=== PATIENT | female | born 1990 | race Asian ===

== ENCOUNTER 2020-10-06 09:10 | Outpatient (REF) | payer OTHER, SELFPAY ==
[2020-10-06 10:36] LABS: Hematocrit 40.9 % (37-47); Hemoglobin 13.5 g/dl (12.0-16.0); Mean Corpuscular Hemoglobin 28.9 pg (27.0-33.0); Mean Corpuscular Volume 87.6 fL (80-98); Mean Platelet Volume 12.2 fL (9.4-12.3); Platelet Count 168 X10*3/uL (160-400); Red Blood Count 4.67 X10*6/uL (4.20-5.50); Red Cell Distribution Width 12.6 % (11.0-16.0); White Blood Count 8.1 X10*3/uL (4.8-10.8)
[2020-10-06 11:09] LABS: Alanine Aminotransferase 11 U/L (0-31); Albumin Level 4.4 g/dL (3.5-5.0); Alkaline Phosphatase 68 U/L (39-117); Anion Gap 11 (12-20); Aspartate Amino Transferase 12 U/L (5-31); Bilirubin Direct 0.2 mg/dL (0.0-0.5); Bilirubin Total 0.7 mg/dL (0.0-1.0); Blood Urea Nitrogen 17 mg/dL (9-16); Calcium 9.1 mg/dL (8.4-10.2); Carbon Dioxide 29 mmol/L (22-29); Chloride 103 mmol/L (96-108); Cholesterol 228 mg/dL; Estimated Glomerular Filt Rate > 60; Glucose Fasting 84 mg/dL (60-99); HDL Cholesterol 36 mg/dL; LDL Cholesterol Calculated 161 mg/dl; Potassium 4.1 mmol/L (3.3-5.1); Sodium 139 mmol/L (135-145); Total Protein 7.3 g/dL (6.5-8.0); Triglycerides 157 mg/dL
== END 2020-10-06 09:11 | disposition home or self-care (01) ==
LOC: HO.WFDLDS 09:10
PROVIDERS: Visit Provider Hospitalist
DX: Z00.00 Encounter for general adult medical examination without abnormal findings (principal); Z13.9 Encounter for screening, unspecified
CPT/HCPCS: 36415; 80048; 80061; 80076; 84443; 85027

== ENCOUNTER 2022-07-02 19:25 | Emergency (ER) | payer OTHER, SELFPAY ==
[2022-07-02 20:48] VITALS: BP 130/63; PULSE 77; RESP 16; TEMP 36.8; O2SAT 100; BMI 28.3
--- OUTSIDE RECORDS SUMMARY | 2022-07-02 21:32 | XMS_ITS | Continuity of Care Document ---
:1990 Author Organization [facility] Address [address] [place] [address]- Care Team Providers Name Role Phone Elisa Obrien MD Primary Care Physician Encounter [facility] [place] Date(s): 11/25/21 - 12/25/[address] [address] Allergies, Adverse Reactions, Alerts No Known Allergies Immunizations Given and Recorded Vaccine Date Status Refusal Reason tetanus/diphtheria/pertussis, acel(Tdap) 12/04/21 Given Medications Alcohol Wipes See Instructions, # 200 each, Refills 5, Tot. Refills 5, Maintenance, Please use as directed for glucose monitoring four times daily, 12/21/21 15:36:00 EDT, Supply, 165, cm, 12/18/21 10:40:00 EDT, Height, 101.4, kg, 11/25/21 10:44:00 EDT, Dry Weight Start Date: 12/21/21 Status: Orderedferrous sulfate 325 mg oral enteric coated tablet 325 mg, 1, tablet, By Mouth, Daily, # 90 tablet, Refills 0, Tot. Refills 0, Maintenance, 12/18/21 11:10:00 EDT, Route to Pharmacy Electronically, [facility] #[id number], Partial fill upon patient request if the prescription is for a schedule II o... Start Date: 12/18/21 Status: OrderedFREESTYLE LITE LANCETS FREESTYLE LITE LANCETS, See Instructions, # 200 each, Refills 5, Tot. Refills 5, Maintenance, GLUCOSE MONITORING 4 TIMES A DAY DURING , 12/21/21 15:36:00 EDT, WWCL PATIENT, PLEASE COMPLETE METER TEACHING WITH PATIENT. LATVIAN SPEAKING, Supply,... Start Date: 12/21/21 Status: OrderedFreestyle Lite Monitor See Instructions, # 1 each, Refills 0, Tot. Refills 0, Maintenance, Glucose monitoring during . WWCL PATIENT. PLEASE COMPLETE TEACHING WITH PATIENT. LATVIAN SPEAKING, 12/21/21 15:36:00 EDT, Supply, 165, cm, 12/18/21 10:40:00 EDT, Height, 101... Start Date: 12/21/21 Status: OrderedFREESTYLE LITE STRIPS FREESTYLE LITE STRIPS, See Instructions, # 200 each, Refills 5, Tot. Refills 5, Maintenance, GLUCOSEMONITORING 4 TIMES PER DAY DURING THE , 12/21/21 15:36:00 EDT, WWCL PATIENT, PLEASE COMPLETE METER TEACHING WITH PATIENT. LATVIAN SPEAKING, Claudio... Start Date: 12/21/21 Status: OrderedPrenatal Multivitamins with Folic Acid 1 mg oral tablet 1 tablet, By Mouth, Daily, # 90 tablet, 3 Refills, Maintenance, 07/21/21 17:00:00 EST, Tablet, [facility] #[id number], Partial fill upon patient request if the prescription is for a schedule II opioid drug., 1 tablet By Mouth Daily Start Date: 07/21/21 Status: Ordered Problem List Condition Effective Dates Status Health Status Informant Migraine(Confirmed)1 Active Obese class II(Confirmed) Active 1Stopped taking medication with . Was previously taking Fioricet and Naproxen. Currently takes Tylenol but does help, was prescribed by a specialist. Encouraged to contact specialist to follow up. Social History Social History Type Response Tobacco Use: Hookah. Other: Smoked e very two weeks, Stopped with . Sex
--- OUTSIDE RECORDS SUMMARY | 2022-07-02 21:32 | XMS_ITS | Continuity of Care Document ---
:1990 Author Organization [facility] Address [address] [place] [address]- Care Team Providers Name Role Phone Not on Staff, PCP Primary Care Physician Unavailable Encounter [facility] Date(s): 04/12/22 - 05/22/[address] [address]- Attending Physician: Not on Staff, Attending MD Referring Physician: Ha Bolton Allergies, Adverse Reactions, Alerts No Known Allergies Immunizations Given and Recorded Vaccine Date Status Refusal Reason tetanus/diphtheria/pertussis, acel(Tdap) 12/04/21 Given Medications ferrous sulfate 325 mg oral enteric coated tablet 325 mg, 1, tablet, By Mouth, Daily, # 90 tablet, Refills 0, Tot. Refills 0, Maintenance, 04/12/22 16:13:00 EDT, Route to Pharmacy Electronically, [facility] #[id number], Partial fill upon patient request if the prescription is for a schedule II o... Start Date: 04/12/22 Status: OrderedSlynd 4 mg oral tablet 1 tablet = 4 mg, By Mouth, Daily, # 84 tablet, 4 Refills, Maintenance, 04/12/22 16:14:00 EDT, Tablet, [facility] #[id number], Partial fill upon patient request if the prescription is for a schedule II opioid drug., 165, cm, 04/12/22 16:04:00 EDT,... Start Date: 04/12/22 Status: Ordered Problem List Condition Effective Dates Status Health Status Informant Breech presentation(Confirmed) Active Intrauterine growth restriction of Active (Confirmed) Migraine(Confirmed)1 Active Obese class II(Confirmed) Active 1Stopped taking medication with . Was previously taking Fioricet and Naproxen. Currently takes Tylenol but does help, was prescribed by a specialist. Encouraged to contact specialist to follow up. Social History Social History Type Response Tobacco Use: Hookah. Other: Smoked e very two weeks, Stopped with . Sex Care Team PersonnelName: Not on Staff, PCP
--- OUTSIDE RECORDS SUMMARY | 2022-07-02 21:32 | XMS_ITS | Continuity of Care Document ---
:1990 Author Organization [facility] Address [address] [place] [address]- Care Team Providers Name Role Phone Not on Staff, PCP Primary Care Physician Unavailable Encounter [facility] [place] Date(s): 12/18/21 - 03/07/[address] [address]- Attending Physician: Not on Staff, Attending MD Allergies, Adverse Reactions, Alerts No Known Allergies Immunizations Given and Recorded Vaccine Date Status Refusal Reason tetanus/diphtheria/pertussis, acel(Tdap) 12/04/21 Given Medications acetaminophen 325 mg oral tablet 650 mg, By Mouth, Every 4 hours, (1-3), may give 325mg per patient preference and re-dose with 325mgwithin 4 hours if needed. Patient should only receive a total of 650mg of Acetaminophen every 4 hours., # 50 tablet, Refills 0, Tot. Refills 0, Main... Start Date: 02/08/22 Status: OrderedCamila 0.35 mg oral tablet 1 tablet = 0.35 mg, By Mouth, Daily, take at the same time each day, # 84 tablet, 3 Refills, Maintenance, 02/08/22 12:14:00 EDT, Tablet, [id number], Partial fill upon patient request if the prescription is for a schedule II opioid drug., 165,... Start Date: 02/08/22 Status: Orderedcodeine-guaifenesin 7.5 mg-225 mg/5 mL oral liquid 5 mL, By Mouth, Every 4 hours, PRN Cough, # 60 mL, 0 Refills, Maintenance, 02/08/22 12:14:00 EDT, Liquid, [id number], Partial fill upon patient request if the prescription is for a schedule II opioid drug., 5 mL By Mouth Every 4 hours,PRN:Coug... Start Date: 02/08/22 Status: Ordereddocusate sodium 100 mg oral capsule 1 capsule = 100 mg, By Mouth, 2 times a day, # 60 capsule, 0 Refills, Maintenance, 02/08/22 12:14:00EDT, Capsule, [facility]acy #[id number], Partial fill upon patient request if the prescription is for a schedule II opioid drug., 165, cm, 02/08/22 9:41:00 E... Start Date: 02/08/22 Status: Orderedferrous sulfate 325 mg oral enteric coated tablet 325 mg, 1, tablet, By Mouth, Daily, # 90 tablet, Refills 0, Tot. Refills 0, Maintenance, 12/18/21 11:10:00 EDT, Route to Pharmacy Electronically, [facility] #[id number], Partial fill upon patient request if the prescription is for a schedule II o... Start Date: 12/18/21 Status: Orderedibuprofen 800 mg oral tablet See Instructions, TAKE 1 TABLET BY MOUTH EVERY 8 HOURS NEEDED, # 60 tablet, Refills 0, Instructions Replace Required Details, Route to Pharmacy Electronically, [id number], 165, cm, 02/08/22 9:41:00 EDT, Height, 104, kg, 02/04/22 9:40:00 EDT, D... Start Date: 03/02/22 Status: OrderedoxyCODONE 5 mg oral tablet 5 mg, 1, tablet, By Mouth, Every 3 hours, PRN, for severe post-operartive pain (7-10), # 7 tablet, Refills 0, Tot. Refills 0, Maintenance, Pain , Severe, 02/08/22 12:14:00 EDT, Route to Pharmacy Electronically, [facility] #[id number], Partial fill upon pa... Start Date: 02/08/22 Status: OrderedPrenatal Multivitamins with Folic Acid 1 mg oral tablet 1 tablet, By Mouth, Daily, # 90 tablet, 3 Refills, Maintenance, 07/21/21 17:00:00 EST, Tablet, [facility] #[id number], Partial fill upon patient request if the prescription is for a schedule II opioid drug., 1 tablet By Mouth Daily Start Date: 07/21/21 Status: OrderedSenna 8.6 mg oral tablet 17.2 mg, 2, tablet, By Mouth, Daily, # 36 tablet, Refills 0, Tot. Refills 0, Maintenance, 02/08/22 12:14:00 EDT, Route to Pharmacy Electronically, [facility]acy #[id number] Tablet, Partial fill upon patient request if the prescription is for a schedule II op... Start Date: 02/08/22 Status: Orderedsimethicone 80 mg oral tablet, chewable 80 mg, Chew, 3 times a day, PRN, # 48 tablet, Refills 0, Tot. Refills 0, Maintenance, Gas, 02/08/22 12:14:00 EDT, [id number], Partial fill upon patient requestif the prescription is for a schedule II opioid d... Start Date: 02/08/22 Status: Ordered Problem List Condition Effective Dates [...]
--- OUTSIDE RECORDS SUMMARY | 2022-07-02 21:32 | XMS_ITS | Continuity of Care Document ---
:1990 Author Organization [facility] Address [address] [place] [address]- Care Team Providers Name Role Phone Elisa Obrien MD Primary Care Physician Encounter [facility] [place] Date(s): 07/04/21 - 07/04/[address] [address] Discharge Disposition: A-D/C Home Attending Physician: Mar Akhtar MD Admitting Physician: Mar Akhtar MD Referring Physician: Mar Akhtar MD Allergies, Adverse Reactions, Alerts Substance Reaction Severity Status NKA Active Problem List Condition Effective Dates Status Health Status Informant Migraine(Confirmed) Active Encounter for healthy person Active accompanying sick person(Confirmed) Procedures Procedure Date Related Diagnosis Body Site Status section Completed Vital Signs Most recent to oldest [Reference Range]: 1 Oxygen Saturation [94-100 %] 100 % (07/04/21 4:07 PM) Pulse Rate [55-90 bpm] 83 bpm (07/04/21 4:07 PM) Blood Pressure [90-138/55-84 mm Hg] 123/77 mm Hg (07/04/21 4:07 PM) Respiratory Rate [16-30 br/min] 18 br/min (07/04/21 4:07 PM) Temperature [96.8-100.4 DegF] 98.2 DegF (07/04/21 4:07 PM) Mode of Delivery (Oxygen) Room air (07/04/21 4:07 PM) Blood pressure sites Arm, left (07/04/21 4:07 PM) Temperature Route Oral (07/04/21 4:07 PM)
--- OUTSIDE RECORDS SUMMARY | 2022-07-02 21:32 | XMS_ITS | Continuity of Care Document ---
:1990 Author Organization [facility] Address [address] [place] [address]- Care Team Providers Name Role Phone Elisa Obrien MD Primary Care Physician [place] [facility] - 08/20/[address] [address] Discharge Disposition: A-D/C Home Attending Physician: Ruby Garcia MD Admitting Physician: Ruby Garcia MD Referring Physician: Ruby Garcia MD Allergies, Adverse Reactions, Alerts Substance Reaction Severity Status NKA Active Medications Colace sodium 100 mg oral capsule 100 mg, 1, capsule, By Mouth, 2 times a day, PRN, with plenty of water, # 20 capsule, Refills 2, Tot. Refills 2, Maintenance, for constipation, 08/19/21 16:33:00 EST, Route to Pharmacy Electronically, [facility] #[id number], Partial fill upon pat... Start Date: 08/19/21 Status: Orderedfolic acid 0.4 mg oral tablet 1 tablet = 0.4 mg, By Mouth, Daily, # 100 tablet, 0 Refills, Maintenance, 07/21/21 16:04:00 EST, Tablet, Partial fill upon patient request if the prescription is for a schedule II opioid drug. Start Date: 07/21/21 Status: OrderedPrenatal Multivitamins with Folic Acid 1 mg oral tablet 1 tablet, By Mouth, Daily, # 90 tablet, 3 Refills, Maintenance, 07/21/21 17:00:00 EST, Tablet, [facility] #[id number], Partial fill upon patient request if the prescription is for a schedule II opioid drug., 1 tablet By Mouth Daily Start Date: 07/21/21 Status: Ordered Problem List Condition Effective Dates Status Health Status Informant Migraine(Confirmed)1 Active Obese class I(Confirmed) Active 1Stopped taking medication with . Was previously taking Fioricet and Naproxen. Currently takes Tylenol but does help, was prescribed by a specialist. Encouraged to contact specialist to follow up. Vital Signs Most recent to oldest [Reference Range]: 1 Weight 92.4 kg (08/20/21 9:47 AM) Oxygen Saturation [94-100 %] 100 % (08/20/21 9:47 AM) Pulse Rate [55-90 bpm] 83 bpm (08/20/21 9:47 AM) Blood Pressure [90-138/55-84 mm Hg] 121/52 mm Hg (08/20/21 9:47 AM) Respiratory Rate [16-30 br/min] 18 br/min (08/20/21 9:47 AM) Temperature [96.8-100.4 DegF] 98.3 DegF (08/20/21 9:47 AM) Mode of Delivery (Oxygen) Room air (08/20/21 9:47 AM) Blood pressure sites Arm, right 1 (08/20/21 9:47 AM) Temperature Route Oral (08/20/21 9:47 AM) Dry Weight 92.4 kg (08/20/21 9:47 AM) 1Result Comment: right upper arm measured 33cm Social History Social History Type Response Tobacco Use: Hookah. Other: Smoked e very two weeks, Stopped with . Sex
--- OUTSIDE RECORDS SUMMARY | 2022-07-02 21:32 | XMS_ITS | Continuity of Care Document ---
:1990 Author Organization [facility] Address [address] [place] [address]- Care Team Providers Name Role Phone Not on Staff, PCP Primary Care Physician Unavailable Encounter [facility] Date(s): 12/04/21 - 03/14/[address] [address]- Attending Physician: Not on Staff, Attending MD [...] capsule, 0 Refills, Maintenance, 02/08/22 12:14:00EDT, Capsule, [facility] #[id number], Partial fill upon patient request if the prescription is for a schedule II opioid drug., 165, cm, 02/08/22 9:41:00 E... Start Date: 02/08/22 Status: Orderedferrous sulfate 325 mg oral enteric coated tablet 325 mg, 1, tablet, By Mouth, Daily, # 90 tablet, Refills 0, Tot. Refills 0, Maintenance, 12/18/21 11:10:00 EDT, Route to Pharmacy Electronically, [facility] #[id number], Partial fill upon patient request if the prescription is for a schedule II o... Start Date: 12/18/21 Status: Orderedibuprofen 800 mg oral tablet See Instructions, TAKE 1 TABLET BY MOUTH EVERY 8 HOURS NEEDED, # 60 tablet, Refills 0, Instructions Replace Required Details, Route to Pharmacy Electronically, [id number], 165, cm, 02/08/22 9:41:00 EDT, Height, 104, kg, 02/04/22 9:40:00 EDT, D... Start Date: 03/02/22 Status: OrderedoxyCODONE 5 mg oral tablet 5 mg, 1, tablet, By Mouth, Every 3 hours, PRN, for severe post-operartive pain (7-10), # 7 tablet, Refills 0, Tot. Refills 0, Maintenance, Pain , Severe, 02/08/22 12:14:00 EDT, Route to Pharmacy Electronically, [facility] #[id number], Partial fill upon pa... Start Date: 02/08/22 Status: OrderedPrenatal Multivitamins with Folic Acid 1 mg oral tablet 1 tablet, By Mouth, Daily, # 90 tablet, 3 Refills, Maintenance, 07/21/21 17:00:00 EST, Tablet, [facility] #[id number], Partial fill upon patient request if the prescription is for a schedule II opioid drug., 1 tablet By Mouth Daily Start Date: 07/21/21 Status: OrderedSenna 8.6 mg oral tablet 17.2 mg, 2, tablet, By Mouth, Daily, # 36 tablet, Refills 0, Tot. Refills 0, Maintenance, 02/08/22 12:14:00 EDT, Route to Pharmacy Electronically, [facility] #[id number] Tablet, Partial fill upon patient request if the prescription is for a schedule II op... Start Date: 02/08/22 Status: Orderedsimethicone 80 mg oral tablet, chewable 80 mg, Chew, 3 times a day, PRN, # 48 tablet, Refills 0, Tot. Refills 0, Maintenance, Gas, 02/08/22 12:14:00 EDT, [id number], Partial fill upon patient requestif the [...]
--- OUTSIDE RECORDS SUMMARY | 2022-07-02 21:32 | XMS_ITS | Continuity of Care Document ---
:1990 Author Organization [facility] Address [address] [place] [address]- Care Team Providers Name Role Phone Not on Staff, PCP Primary Care Physician Unavailable Encounter [facility] [place] Date(s): 01/08/22 - 02/07/22 [facility] [address] [place], [place] [address] Allergies, Adverse Reactions, Alerts No Known Allergies Immunizations Given and Recorded Vaccine Date Status Refusal Reason tetanus/diphtheria/pertussis, acel(Tdap) 12/04/21 Given Medications ferrous sulfate 325 mg oral enteric coated tablet 325 mg, 1, tablet, By Mouth, Daily, # 90 tablet, Refills 0, Tot. Refills 0, Maintenance, 12/18/21 11:10:00 EDT, Route to Pharmacy Electronically, [facility] #[id number], Partial fill upon patient request if the prescription is for a schedule II o... Start Date: 12/18/21 Status: OrderedPrenatal Multivitamins with Folic Acid 1 mg oral tablet 1 tablet, By Mouth, Daily, # 90 tablet, 3 Refills, Maintenance, 07/21/21 17:00:00 EST, Tablet, [facility] #[id number], Partial fill upon patient request if the prescription is for a schedule II opioid drug., 1 tablet By Mouth Daily Start Date: 07/21/21 Status: OrderedTamiflu 75 mg oral capsule 1 capsule = 75 mg, By Mouth, 2 times a day, for 5 days, # 10 capsule, 0 Refills, Acute 02/08/22 14:28:00 EDT, 02/03/22 14:28:00 EDT, Capsule, [id number], Partial fill upon patient request if the prescription is for a schedule II opioid drug.,... Start Date: 02/03/22 Stop Date: 02/08/22 Status: Ordered Problem List Condition [...]
--- OUTSIDE RECORDS SUMMARY | 2022-07-02 21:32 | XMS_ITS | Continuity of Care Document ---
:1990 Author Organization [facility] Address [address] [place] [address]- Care Team Providers Name Role Phone Micah ROGER, Elisa Sullivan Primary Care Physician Encounter [facility] [place] Date(s): 12/21/21 - 01/20/[address] [address]- Allergies, Adverse Reactions, Alerts No Known Allergies Immunizations Given and Recorded Vaccine Date Status Refusal Reason tetanus/diphtheria/pertussis, acel(Tdap) 12/04/21 Given Medications ferrous sulfate 325 mg oral enteric coated tablet 325 mg, 1, tablet, By Mouth, Daily, # 90 tablet, Refills 0, Tot. Refills 0, Maintenance, 12/18/21 11:10:00 EDT, Route to Pharmacy Electronically, [facility] #[id number], Partial fill upon patient request if the prescription is for a schedule II o... Start Date: 12/18/21 Status: OrderedPrenatal Multivitamins with Folic Acid 1 mg oral tablet 1 tablet, By Mouth, Daily, # 90 tablet, 3 Refills, Maintenance, 07/21/21 17:00:00 EST, Tablet, [facility] #[id number], Partial fill upon patient request if the [...]
--- OUTSIDE RECORDS SUMMARY | 2022-07-02 21:32 | XMS_ITS | Continuity of Care Document ---
:1990 Author Organization [facility] Address [address] [place] [address]- Care Team Providers Name Role Phone Elisa Obrien MD Primary Care Physician Encounter [facility] [place] Date(s): 01/26/22 - 01/26/[address] [address] Discharge Disposition: A-D/C Home Attending Physician: Mayra Purvis CNM Admitting Physician: Mayra Purvis CNM Referring Physician: Mayra Purvis CNM Allergies, Adverse Reactions, Alerts No Known Allergies Immunizations Given and Recorded Vaccine Date Status Refusal Reason tetanus/diphtheria/pertussis, acel(Tdap) 12/04/21 Given Medications ferrous sulfate 325 mg oral enteric coated tablet 325 mg, 1, tablet, By Mouth, Daily, # 90 tablet, Refills 0, Tot. Refills 0, Maintenance, 12/18/21 11:10:00 EDT, Route to Pharmacy Electronically, [facility] #[id number], Partial fill upon patient request if the prescription is for a schedule II o... Start Date: 12/18/21 Status: OrderedPrenatal Multivitamins with Folic Acid 1 mg oral tablet 1 tablet, By Mouth, Daily, # 90 tablet, 3 Refills, Maintenance, 07/21/21 17:00:00 EST, Tablet, [facility] #[id number], Partial fill upon patient request if the [...]
--- OUTSIDE RECORDS SUMMARY | 2022-07-02 21:32 | XMS_ITS | Continuity of Care Document ---
:1990 Author Organization [facility] Address [address] [place] [address]- Care Team Providers Name Role Phone Micah ROGER, Elisa Sullivan Primary Care Physician Encounter [facility] [place] Date(s): 12/24/21 - 01/23/[address] [address]- Allergies, Adverse Reactions, Alerts No Known Allergies Immunizations Given and Recorded Vaccine Date Status Refusal Reason tetanus/diphtheria/pertussis, acel(Tdap) 12/04/21 Given Medications ferrous sulfate 325 mg oral enteric coated tablet 325 mg, 1, tablet, By Mouth, Daily, # 90 tablet, Refills 0, Tot. Refills 0, Maintenance, 12/18/21 11:10:00 EDT, Route to Pharmacy Electronically, [facility] #[id number], Partial fill upon patient request if the prescription is for a schedule II o... Start Date: 12/18/21 Status: OrderedPrenatal Multivitamins with Folic Acid 1 mg oral tablet 1 tablet, By Mouth, Daily, # 90 tablet, 3 Refills, Maintenance, 07/21/21 17:00:00 EST, Tablet, [facility] #[id number], Partial fill upon patient request if the [...]
--- OUTSIDE RECORDS SUMMARY | 2022-07-02 21:32 | XMS_ITS | Continuity of Care Document ---
:1990 Author Organization [facility] Address [address] [place] [address]- Care Team Providers Name Role Phone Not on Staff, PCP Primary Care Physician Unavailable Encounter [facility] [place] Date(s): 12/18/21 - 03/27/[address] [address]- Attending Physician: Not on Staff, Attending MD [...] capsule, 0 Refills, Maintenance, 02/08/22 12:14:00EDT, Capsule, [facility] #[id number], Partial fill upon patient request if the prescription is for a schedule II opioid drug., 165, cm, 02/08/22 9:41:00 E... Start Date: 02/08/22 Status: Orderedferrous sulfate 325 mg oral enteric coated tablet 325 mg, 1, tablet, By Mouth, Daily, # 90 tablet, Refills 0, Tot. Refills 0, Maintenance, 12/18/21 11:10:00 EDT, Route to Pharmacy Electronically, [facility] #[id number], Partial fill upon patient request if the prescription is for a schedule II o... Start Date: 12/18/21 Status: Orderedibuprofen 800 mg oral tablet See Instructions, TAKE 1 TABLET BY MOUTH EVERY 8 HOURS NEEDED, # 60 tablet, Refills 0, Instructions Replace Required Details, Route to Pharmacy Electronically, [id number], 165, cm, 02/08/22 9:41:00 EDT, Height, 104, kg, 02/04/22 9:40:00 EDT, D... Start Date: 03/02/22 Status: OrderedoxyCODONE 5 mg oral tablet 5 mg, 1, tablet, By Mouth, Every 3 hours, PRN, for severe post-operartive pain (7-10), # 7 tablet, Refills 0, Tot. Refills 0, Maintenance, Pain , Severe, 02/08/22 12:14:00 EDT, Route to Pharmacy Electronically, [facility] #[id number], Partial fill upon pa... Start Date: 02/08/22 Status: OrderedPrenatal Multivitamins with Folic Acid 1 mg oral tablet 1 tablet, By Mouth, Daily, # 90 tablet, 3 Refills, Maintenance, 07/21/21 17:00:00 EST, Tablet, [facility] #[id number], Partial fill upon patient request if the prescription is for a schedule II opioid drug., 1 tablet By Mouth Daily Start Date: 07/21/21 Status: OrderedSenna 8.6 mg oral tablet 17.2 mg, 2, tablet, By Mouth, Daily, # 36 tablet, Refills 0, Tot. Refills 0, Maintenance, 02/08/22 12:14:00 EDT, Route to Pharmacy Electronically, [facility] #[id number] Tablet, Partial fill upon patient request if the prescription is for a schedule II op... Start Date: 02/08/22 Status: Orderedsimethicone 80 mg oral tablet, chewable 80 mg, Chew, 3 times a day, PRN, # 48 tablet, Refills 0, Tot. Refills 0, Maintenance, Gas, 02/08/22 12:14:00 EDT, Route to Pharmacy Electronically, [facility]/pharmacy #[id number], Partial fill upon patient requestif the [...]
--- OUTSIDE RECORDS SUMMARY | 2022-07-02 21:32 | XMS_ITS | Continuity of Care Document ---
:1990 Author Organization [facility] Address [address] [place] [address]- Care Team Providers Name Role Phone Not on Staff, PCP Primary Care Physician Unavailable [place] [facility] [place] 02/08/22 - 04/14/[address] [address]- Attending Physician: Not on Staff, Attending MD Allergies, Adverse Reactions, Alerts No Known Allergies Immunizations Given and Recorded Vaccine Date Status Refusal Reason tetanus/diphtheria/pertussis, acel(Tdap) 12/04/21 Given Medications ferrous sulfate 325 mg oral enteric coated tablet 325 mg, 1, tablet, By Mouth, Daily, # 90 tablet, Refills 0, Tot. Refills 0, Maintenance, 04/12/22 16:13:00 EDT, Route to Pharmacy Electronically, [facility] #[id number], Partial fill upon patient request if the prescription is for a schedule II o... Start Date: 04/12/22 Status: OrderedSlynd 4 mg oral tablet 1 tablet = 4 mg, By Mouth, Daily, # 84 tablet, 4 Refills, Maintenance, 04/12/22 16:14:00 EDT, Tablet, [facility] #[id number], Partial fill upon patient request if the [...]
--- OUTSIDE RECORDS SUMMARY | 2022-07-02 21:32 | XMS_ITS | Continuity of Care Document ---
:1990 Author Organization [facility] Address [address] [place] [address]- Care Team Providers Name Role Phone Not on Staff, PCP Primary Care Physician Unavailable [place] [facility] [place] 03[place]22 [facility] [address] [place] [id number] Attending Physician: Mayra Purvis CNM Admitting Physician: [...] capsule, 0 Refills, Maintenance, 02/08/22 12:14:00EDT, Capsule, [facility]/pharmacy #[id number], Partial fill upon patient request if the prescription is for a schedule II opioid drug., 165, cm, 02/08/22 9:41:00 E... Start Date: 02/08/22 Status: Orderedferrous sulfate 325 mg oral enteric coated tablet 325 mg, 1, tablet, By Mouth, Daily, # 90 tablet, Refills 0, Tot. Refills 0, Maintenance, 12/18/21 11:10:00 EDT, Route to Pharmacy Electronically, [facility] #[id number], Partial fill upon patient request if the prescription is for a schedule II o... Start Date: 12/18/21 Status: Orderedibuprofen 800 mg oral tablet See Instructions, TAKE 1 TABLET BY MOUTH EVERY 8 HOURS NEEDED, # 60 tablet, Refills 0, Instructions Replace Required Details, Route to Pharmacy Electronically, [id number], 165, cm, 02/08/22 9:41:00 EDT, Height, 104, kg, 02/04/22 9:40:00 EDT, D... Start Date: 03/02/22 Status: OrderedoxyCODONE 5 mg oral tablet 5 mg, 1, tablet, By Mouth, Every 3 hours, PRN, for severe post-operartive pain (7-10), # 7 tablet, Refills 0, Tot. Refills 0, Maintenance, Pain , Severe, 02/08/22 12:14:00 EDT, Route to Pharmacy Electronically, [facility]/pharmacy #[id number], Partial fill upon pa... Start Date: 02/08/22 Status: OrderedPrenatal Multivitamins with Folic Acid 1 mg oral tablet 1 tablet, By Mouth, Daily, # 90 tablet, 3 Refills, Maintenance, 07/21/21 17:00:00 EST, Tablet, [facility] #[id number], Partial fill upon patient request if the prescription is for a schedule II opioid drug., 1 tablet By Mouth Daily Start Date: 07/21/21 Status: OrderedSenna 8.6 mg oral tablet 17.2 mg, 2, tablet, By Mouth, Daily, # 36 tablet, Refills 0, Tot. Refills 0, Maintenance, 02/08/22 12:14:00 EDT, Route to Pharmacy Electronically, [facility]/pharmacy #[id number] Tablet, Partial fill upon patient request if the prescription is for a schedule II op... Start Date: 02/08/22 Status: Orderedsimethicone 80 mg oral tablet, chewable 80 mg, Chew, 3 times a day, PRN, # 48 tablet, Refills 0, Tot. Refills 0, Maintenance, Gas, 02/08/22 12:14:00 EDT, Route to Pharmacy Electronically, [facility]/pharmacy #[id number], Partial fill upon patient requestif the [...]
--- OUTSIDE RECORDS SUMMARY | 2022-07-02 21:32 | XMS_ITS | Continuity of Care Document ---
:1990 Author Organization [facility] Address [address] [place] [address]- Care Team Providers Name Role Phone Not on Staff, PCP Primary Care Physician Unavailable Encounter [facility] [place](s): 02/02/22 - 02/02/22 [facility] [address] [place] [id number] Discharge Disposition: A-D/C Home Attending Physician: [...] 12/18/21 11:10:00 EDT, Route to Pharmacy Electronically, [facility] #[id number], Partial fill upon patient request if the prescription is for a schedule II o... Start Date: 12/18/21 Status: OrderedPrenatal Multivitamins with Folic Acid 1 mg oral tablet 1 tablet, By Mouth, Daily, # 90 tablet, 3 Refills, Maintenance, 07/21/21 17:00:00 EST, Tablet, [facility] #[id number], Partial fill upon patient request if the prescription is for a schedule II opioid drug., 1 tablet By Mouth Daily Start Date: 07/21/21 Status: OrderedTamiflu 75 mg oral capsule 1 capsule = 75 mg, By Mouth, 2 times a day, for 5 days, # 10 capsule, 0 Refills, Acute 02/07/22 14:15:00 EDT, 02/02/22 14:15:00 EDT, Capsule, [facility] #[id number], Partial fill upon patient request if the prescription is for a schedule II opioi... Start Date: 02/02/22 Stop Date: 02/07/22 Status: Ordered Problem List Condition Effective Dates [...]
--- OUTSIDE RECORDS SUMMARY | 2022-07-02 21:32 | XMS_ITS | Continuity of Care Document ---
:1990 Author Organization [facility] Address [address] [place] [address]- Care Team Providers Name Role Phone Elisa Obrien MD Primary Care Physician [place] [facility] [place] 02/15/[address] [address]- Discharge Disposition: A-D/C Walkout Attending Physician: Not on Staff, Attending MD Admitting Physician: Not on Staff, Admitting MD Referring Physician: Not on Staff, Referring MD Allergies, Adverse Reactions, Alerts Substance Reaction Severity Status NKA Active Medications No Known Medications Problem List Condition Effective Dates Status Health Status Informant Encounter for healthy person Active accompanying sick person(Confirmed) Vital Signs Most recent to oldest [Reference Range]: 1 Oxygen Saturation [94-100 %] 100 % (02/15/21 1:13 AM) Pulse Rate [55-90 bpm] 64 bpm (02/15/21 1:13 AM) Blood Pressure [90-138/55-84 mm Hg] 111/65 mm Hg (02/15/21 1:13 AM) Respiratory Rate [16-30 br/min] 16 br/min (02/15/21 1:13 AM) Temperature [96.8-100.4 DegF] 98.1 DegF (02/15/21 1:13 AM) Mode of Delivery (Oxygen) Nasal cannula (02/15/21 1:13 AM) Blood pressure sites Arm, left (02/15/21 1:13 AM) Temperature Route Oral (02/15/21 1:13 AM)
--- OUTSIDE RECORDS SUMMARY | 2022-07-02 21:33 | XMS_ITS | Continuity of Care Document ---
:1990 Author Organization [facility] Address [address] [place] [address]- Care Team Providers Name Role Phone Micah ROGER, Elisa Sullivan Primary Care Physician Encounter [facility] [place] Date(s): 08/20/21 - 09/19/[address] [address]- Allergies, Adverse Reactions, Alerts No Known Allergies Medications Colace sodium 100 mg oral capsule 100 mg, 1, capsule, By Mouth, 2 times a day, PRN, with plenty of water, # 20 capsule, Refills 2, Tot. Refills 2, Maintenance, for constipation, 08/19/21 16:33:00 EST, Route to Pharmacy Electronically, [facility] #[id number], Partial fill upon pat... Start Date: 08/19/21 [...] 3 Refills, Maintenance, 07/21/21 17:00:00 EST, Tablet, [facility] #[id number], Partial fill upon patient request if the [...]
--- OUTSIDE RECORDS SUMMARY | 2022-07-02 21:33 | XMS_ITS | Continuity of Care Document ---
:1990 Author Organization [facility] Address [address] [place] [address]- Care Team Providers Name Role Phone Elisa Obrien MD Primary Care Physician Encounter [id number] Date(s): 01/19/22 - 01/19/[address] [address] Discharge Disposition: A-D/C Home Attending Physician: Mayra [...] 12/18/21 11:10:00 EDT, Route to Pharmacy Electronically, [facility] #[id number], Partial fill upon patient request if the prescription is for a schedule II o... Start Date: 12/18/21 Status: OrderedPrenatal Multivitamins with Folic Acid 1 mg oral tablet 1 tablet, By Mouth, Daily, # 90 tablet, 3 Refills, Maintenance, 07/21/21 17:00:00 EST, Tablet, [facility] #[id number], Partial fill upon patient request if the [...]
--- OUTSIDE RECORDS SUMMARY | 2022-07-02 21:33 | XMS_ITS | Continuity of Care Document ---
:1990 Author Organization [facility] Address [address] [place] [address]- Care Team Providers Name Role Phone Not on Staff, PCP Primary Care Physician Unavailable Encounter [facility] [place] Date(s): 12/18/21 - 03/21/[address] [address]- Attending Physician: Not on Staff, Attending MD [...] capsule, 0 Refills, Maintenance, 02/08/22 12:14:00EDT, Capsule, [facility]/pharmacy #[id number], Partial fill upon patient request if the prescription is for a schedule II opioid drug., 165, cm, 02/08/22 9:41:00 E... Start Date: 02/08/22 Status: Orderedferrous sulfate 325 mg oral enteric coated tablet 325 mg, 1, tablet, By Mouth, Daily, # 90 tablet, Refills 0, Tot. Refills 0, Maintenance, 12/18/21 11:10:00 EDT, Route to Pharmacy Electronically, [facility] #[id number], Partial fill upon patient request if the prescription is for a schedule II o... Start Date: 12/18/21 Status: Orderedibuprofen 800 mg oral tablet See Instructions, TAKE 1 TABLET BY MOUTH EVERY 8 HOURS NEEDED, # 60 tablet, Refills 0, Instructions Replace Required Details, Route to Pharmacy Electronically, [facility] [id number], 165, cm, 02/08/22 9:41:00 EDT, Height, 104, kg, 02/04/22 9:40:00 EDT, D... Start Date: 03/02/22 Status: OrderedoxyCODONE 5 mg oral tablet 5 mg, 1, tablet, By Mouth, Every 3 hours, PRN, for severe post-operartive pain (7-10), # 7 tablet, Refills 0, Tot. Refills 0, Maintenance, Pain , Severe, 02/08/22 12:14:00 EDT, Route to Pharmacy Electronically, [facility]/pharmacy #[id number], Partial fill upon pa... Start Date: 02/08/22 Status: OrderedPrenatal Multivitamins with Folic Acid 1 mg oral tablet 1 tablet, By Mouth, Daily, # 90 tablet, 3 Refills, Maintenance, 07/21/21 17:00:00 EST, Tablet, [facility] #[id number], Partial fill upon patient request if the prescription is for a schedule II opioid drug., 1 tablet By Mouth Daily Start Date: 07/21/21 Status: OrderedSenna 8.6 mg oral tablet 17.2 mg, 2, tablet, By Mouth, Daily, # 36 tablet, Refills 0, Tot. Refills 0, Maintenance, 02/08/22 12:14:00 EDT, Route to Pharmacy Electronically, [facility]/pharmacy #[id number] Tablet, Partial fill upon patient request if the prescription is for a schedule II op... Start Date: 02/08/22 Status: Orderedsimethicone 80 mg oral tablet, chewable 80 mg, Chew, 3 times a day, PRN, # 48 tablet, Refills 0, Tot. Refills 0, Maintenance, Gas, 02/08/22 12:14:00 EDT, Route to Pharmacy Electronically, [facility]/pharmacy #[id number], Partial fill upon patient requestif [...]
--- OUTSIDE RECORDS SUMMARY | 2022-07-02 21:33 | XMS_ITS | Continuity of Care Document ---
:1990 Author Organization [facility] Address [address] [place] [address]- Care Team Providers Name Role Phone Not on Staff, PCP Primary Care Physician Unavailable Encounter [facility] [place] Date(s): 02/04/22 - 02/08/[address] [address] Discharge Disposition: A-D/C Home Attending Physician: Ruby Garcia MD Admitting Physician: Ruby Garcia MD Referring Physician: Ruby Garcia MD Allergies, Adverse Reactions, Alerts No Known [...] Refills 0, Main... Start Date: 02/08/22 Status: OrderedAcetaminophen Tablet 650 mg, Tablet, By Mouth, (1-3), may give 325mg per patient preference and re- dose with 325mg within4 hours if needed. Patient should only receive a total of 650mg of Acetaminophen every 4 hours., 02/08/22 10:00:00 EDT Start Date: 02/08/22 Stop Date: 02/08/22 Status: CompletedCamila 0.35 mg oral tablet 1 tablet = [...] 0 Refills, Maintenance, 02/08/22 12:14:00 EDT, Liquid, [facility]/pharmacy #[id number], Partial fill upon patient request if the prescription is for a schedule II opioid drug., 5 mL By Mouth Every 4 hours,PRN:Coug... Start Date: 02/08/22 Status: Ordereddocusate sodium 100 mg oral capsule 1 capsule = 100 mg, By Mouth, 2 times a day, # 60 capsule, 0 Refills, Maintenance, 02/08/22 12:14:00EDT, Capsule, [facility]/pharmacy #[id number], Partial fill upon patient request if the prescription is for a schedule II opioid drug., 165, cm, 02/08/22 9:41:00 E... Start Date: 02/08/22 Status: Orderedferrous sulfate 325 mg oral enteric coated tablet 325 mg, 1, tablet, By Mouth, Daily, # 90 tablet, Refills 0, Tot. Refills 0, Maintenance, 12/18/21 11:10:00 EDT, Route to Pharmacy Electronically, [facility] #[id number], Partial fill upon patient request if the prescription is for a schedule II o... Start Date: 12/18/21 Status: Orderedibuprofen 800 mg oral tablet 800 mg, 1, tablet, By Mouth, Every 8 hours, (4-6), may give 400mg per patient preference and re-dosewith 400mg within 8 hours if needed. Patient should only receive a total of 800mg of Ibuprofen every8 hours., # 60 tablet, Refills 0, Tot. Refills... Start Date: 02/08/22 Status: OrderedIbuprofen Tablet 800 mg, Tablet, By Mouth, (4-6), may give 400mg per patient preference and re- dose with 400mg within8 hours if needed. Patient should only receive a total of 800mg of Ibuprofen every 8 hours., 02/08/22 10:08:00 EDT Start Date: 02/08/22 Stop Date: 02/08/22 Status: CompletedoxyCODONE 5 mg oral tablet 5 mg, 1, tablet, By Mouth, Every 3 hours, PRN, for severe post-operartive pain (7-10), # 7 tablet, Refills 0, Tot. Refills 0, Maintenance, Pain , Severe, 02/08/22 12:14:00 EDT, Route to Pharmacy Electronically, [facility]/pharmacy #[id number], Partial fill upon pa... Start Date: 02/08/22 Status: OrderedPrenatal Multivitamins with Folic Acid 1 mg oral tablet 1 tablet, By Mouth, Daily, # 90 tablet, 3 Refills, Maintenance, 07/21/21 17:00:00 EST, Tablet, [facility] #[id number], Partial fill upon patient request if the prescription is for a schedule II opioid drug., 1 tablet By Mouth Daily Start Date: 07/21/21 Status: OrderedSenna 8.6 mg oral tablet 17.2 mg, 2, tablet, By Mouth, Daily, # 36 tablet, Refills 0, Tot. Refills 0, Maintenance, 02/08/22 12:14:00 EDT, Route to Pharmacy Electronically, [facility]/pharmacy #[id number] Tablet, Partial fill upon patient request if the prescription is for a schedule II op... Start Date: 02/08/22 Status: Orderedsimethicone 80 mg oral tablet, chewable 80 mg, Chew, 3 times a day, PRN, # 48 tablet, Refills 0, Tot. Refills 0, Maintenance, Gas, 02/08/22 12:14:00 EDT, Route to Pharmacy Electronically, [facility]/pharmacy #[id number], Partial fill upon patient requestif the prescription is for a schedule II opioid d... Start Date: 02/08/22 Status: OrderedTamiflu 75 mg oral capsule 1 capsule = 75 mg, By Mouth, 2 times a day, for 5 days, # 10 capsule, 0 Refills, Acute 02/13/22 6:52:00 EDT, 02/08/22 6:52:00 EDT, Capsule, [facility] #[id number], Partial fill upon patient request if the prescription is for a schedule II opioid... Start Date: 02/08/22 Stop Date: 02/13/22 Status: Ordered Problem List Condition Effective Dates Status Health Status Informant Breech presentation(Confirmed) Active Intrauterine growth restriction of Active (Confirmed) Migraine(Confirmed)1 Active Obese class II(Confirmed) Active 1Stopped taking medication with . Was previously taking Fioricet and Naproxen. Currently takes Tylenol but does help, was prescribed by a specialist. Encouraged to contact specialist to follow up. Procedures Procedure Date Related Diagnosis Body Site Status delivery only; 02/04/22 Comp leted Vital Signs Most recent to oldest [Reference 1 2 3 Range]: Height 165 cm 165 cm 165 cm (02/08/22 9:00 AM) (02/08/22 4:00 AM) (02/07/22 8:00 A M) Weight 104 kg (02/04/22 9:40 AM) Oxygen Saturation [94-100 %] 97 % 97 % 97 % (02/08/22 9:00 AM) (02/08/22 4:00 AM) (02/07/22 8:00 A M) Pulse Rate [55-90 bpm] 67 bpm 70 bpm 68 bpm (02/08/22 9:00 AM) (02/08/22 4:00 AM) (02/07/22 8:00 A M) Body Mass Index [18.5-24.99] 38.2 *>HHI* (02/04/22 9:40 AM) Blood Pressure [90-138/55-84 mm 110/65 mm Hg 125/78 mm Hg 101/58 mm Hg Hg] (02/08/22 9:00 AM) (02/08/22 4:00 AM) (02/07/22 8:00 A M) Respiratory Rate [16-30 br/min] 20 br/min 20 br/min 20 br/min (02/08/22 9:43 AM) (02/08/22 9:43 AM) (02/08/22 9:00 A M) Temperature [96.8-100.4 DegF] 98.4 DegF 98.3 DegF 98 .4 DegF (02/08/22 9:00 AM) (02/08/22 4:00 AM) (02/07/22 8:00 A M) Mode of Delivery (Oxygen) Room air Room air Room a ir (02/07/22 8:00 AM) (02/07/22 5:57 AM) (02/07/22 4:00 A M) Blood pressure sites Arm, left Arm, right Arm, right (02/08/22 9:00 AM) (02/07/22 8:00 AM) (02/07/22 5:57 A M) Temperature Route Oral Oral Oral (02/08/22 9:00 AM) (02/08/22 4:00 AM) (02/07/22 8:00 A M) Dry Weight 104 kg (02/04/22 9:40 AM) Social History Social History Type Response Tobacco Use: Hookah. Other: Smoked e very two weeks, Stopped with . Sex
--- OUTSIDE RECORDS SUMMARY | 2022-07-02 21:33 | XMS_ITS | Continuity of Care Document ---
:1990 Author Organization [facility] Address [address] [place] [address]- Care Team Providers Name Role Phone Not on Staff, PCP Primary Care Physician Unavailable [place] [facility] [place]s): 02/02/22 - 03/04/22 [facility] [address] [place], [place] [address] Attending Physician: Peter Bustamante MD Referring Physician: Peter Bustamante MD Allergies, Adverse Reactions, Alerts No Known [...] capsule, 0 Refills, Maintenance, 02/08/22 12:14:00EDT, Capsule, [facility]/pharmacy #[id number], Partial fill upon patient request if the prescription is for a schedule II opioid drug., 165, cm, 02/08/22 9:41:00 E... Start Date: 02/08/22 Status: Orderedferrous sulfate 325 mg oral enteric coated tablet 325 mg, 1, tablet, By Mouth, Daily, # 90 tablet, Refills 0, Tot. Refills 0, Maintenance, 12/18/21 11:10:00 EDT, Route to Pharmacy Electronically, [facility] #[id number], Partial fill upon patient request if the prescription is for a schedule II o... Start Date: 12/18/21 Status: Orderedibuprofen 800 mg oral tablet See Instructions, TAKE 1 TABLET BY MOUTH EVERY 8 HOURS NEEDED, # 60 tablet, Refills 0, Instructions Replace Required Details, Route to Pharmacy Electronically, [facility] [id number], 165, cm, 02/08/22 9:41:00 EDT, Height, 104, kg, 02/04/22 9:40:00 EDT, D... Start Date: 03/02/22 Status: OrderedoxyCODONE 5 mg oral tablet 5 mg, 1, tablet, By Mouth, Every 3 hours, PRN, for severe post-operartive pain (7-10), # 7 tablet, Refills 0, Tot. Refills 0, Maintenance, Pain , Severe, 02/08/22 12:14:00 EDT, Route to Pharmacy Electronically, [facility]/pharmacy #[id number], Partial fill upon pa... Start Date: 02/08/22 Status: OrderedPrenatal Multivitamins with Folic Acid 1 mg oral tablet 1 tablet, By Mouth, Daily, # 90 tablet, 3 Refills, Maintenance, 07/21/21 17:00:00 EST, Tablet, [facility] #[id number], Partial fill upon patient request if the prescription is for a schedule II opioid drug., 1 tablet By Mouth Daily Start Date: 07/21/21 Status: OrderedSenna 8.6 mg oral tablet 17.2 mg, 2, tablet, By Mouth, Daily, # 36 tablet, Refills 0, Tot. Refills 0, Maintenance, 02/08/22 12:14:00 EDT, Route to Pharmacy Electronically, [facility]/pharmacy #[id number] Tablet, Partial fill upon patient request if the prescription is for a schedule II op... Start Date: 02/08/22 Status: Orderedsimethicone 80 mg oral tablet, chewable 80 mg, Chew, 3 times a day, PRN, # 48 tablet, Refills 0, Tot. Refills 0, Maintenance, Gas, 02/08/22 12:14:00 EDT, Route to Pharmacy Electronically, [facility]/pharmacy #[id number], Partial fill upon patient [...]
--- OUTSIDE RECORDS SUMMARY | 2022-07-02 21:33 | XMS_ITS | Continuity of Care Document ---
:1990 Author Organization [facility] Address [address] [place] [address]- Care Team Providers Name Role Phone Not on Staff, PCP Primary Care Physician Unavailable Encounter [facility] Date(s): 01/08/22 - 02/07/22 [facility] [address] [place], [place] [address] Attending Physician: Phillip English Admitting Physician: Phillip English Referring Physician: Phillip English Allergies, Adverse Reactions, Alerts No Known Allergies Immunizations Given and Recorded Vaccine Date Status Refusal Reason tetanus/diphtheria/pertussis, acel(Tdap) 12/04/21 Given Medications ferrous sulfate 325 mg oral enteric coated tablet 325 mg, 1, tablet, By Mouth, Daily, # 90 tablet, Refills 0, Tot. Refills 0, Maintenance, 12/18/21 11:10:00 EDT, Route to Pharmacy Electronically, [facility] #[id number], Partial fill upon patient request if the prescription is for a schedule II o... Start Date: 12/18/21 Status: OrderedPrenatal Multivitamins with Folic Acid 1 mg oral tablet 1 tablet, By Mouth, Daily, # 90 tablet, 3 Refills, Maintenance, 07/21/21 17:00:00 EST, Tablet, [facility] #[id number], Partial fill upon patient request if the prescription is for a schedule II opioid drug., 1 tablet By Mouth Daily Start Date: 07/21/21 Status: OrderedTamiflu 75 mg oral capsule 1 capsule = 75 mg, By Mouth, 2 times a day, for 5 days, # 10 capsule, 0 Refills, Acute 02/08/22 14:28:00 EDT, 02/03/22 14:28:00 EDT, Capsule, [facility]/pharmacy #[id number], Partial fill upon patient request if the [...]
--- OUTSIDE RECORDS SUMMARY | 2022-07-02 21:33 | XMS_ITS | Continuity of Care Document ---
:1990 Author Organization [facility] Address [address] [place] [address]- Care Team Providers Name Role Phone Not on Staff, PCP Primary Care Physician Unavailable Encounter [facility] [place] Date(s): 01/30/22 - 03/07/[address] [address]- Attending Physician: Yadira Wick MD Admitting Physician: Yadira Wick MD Referring Physician: Mayra Purvis CNM Allergies, Adverse [...] Refills, Maintenance, 02/08/22 12:14:00 EDT, Tablet, [id number], Partial fill upon patient request if the [...] capsule, 0 Refills, Maintenance, 02/08/22 12:14:00EDT, Capsule, [facility]/pharmacy #[id number], Partial fill upon patient request if the prescription is for a schedule II opioid drug., 165, cm, 02/08/22 9:41:00 E... Start Date: 02/08/22 Status: Orderedferrous sulfate 325 mg oral enteric coated tablet 325 mg, 1, tablet, By Mouth, Daily, # 90 tablet, Refills 0, Tot. Refills 0, Maintenance, 12/18/21 11:10:00 EDT, Route to Pharmacy Electronically, [facility] #[id number], Partial fill upon patient request if the prescription is for a schedule II o... Start Date: 12/18/21 Status: Orderedibuprofen 800 mg oral tablet See Instructions, TAKE 1 TABLET BY MOUTH EVERY 8 HOURS NEEDED, # 60 tablet, Refills 0, Instructions Replace Required Details, Route to Pharmacy Electronically, [id number], 165, cm, 02/08/22 9:41:00 EDT, Height, 104, kg, 02/04/22 9:40:00 EDT, D... Start Date: 03/02/22 Status: OrderedoxyCODONE 5 mg oral tablet 5 mg, 1, tablet, By Mouth, Every 3 hours, PRN, for severe post-operartive pain (7-10), # 7 tablet, Refills 0, Tot. Refills 0, Maintenance, Pain , Severe, 02/08/22 12:14:00 EDT, Route to Pharmacy Electronically, [facility]/pharmacy #[id number], Partial fill upon pa... Start Date: 02/08/22 Status: OrderedPrenatal Multivitamins with Folic Acid 1 mg oral tablet 1 tablet, By Mouth, Daily, # 90 tablet, 3 Refills, Maintenance, 07/21/21 17:00:00 EST, Tablet, [facility] #[id number], Partial fill upon patient request if the prescription is for a schedule II opioid drug., 1 tablet By Mouth Daily Start Date: 07/21/21 Status: OrderedSenna 8.6 mg oral tablet 17.2 mg, 2, tablet, By Mouth, Daily, # 36 tablet, Refills 0, Tot. Refills 0, Maintenance, 02/08/22 12:14:00 EDT, Route to Pharmacy Electronically, [facility]/pharmacy #[id number] Tablet, Partial fill upon patient request if the prescription is for a schedule II op... Start Date: 02/08/22 Status: Orderedsimethicone 80 mg oral tablet, chewable 80 mg, Chew, 3 times a day, PRN, # 48 tablet, Refills 0, Tot. Refills 0, Maintenance, Gas, 02/08/22 12:14:00 EDT, Route to Pharmacy Electronically, [facility]/pharmacy #[id number], Partial fill upon patient requestif the [...]
--- OUTSIDE RECORDS SUMMARY | 2022-07-02 21:33 | XMS_ITS | Continuity of Care Document ---
:1990 Author Organization [facility] Address [address] [place] [address]- Care Team Providers Name Role Phone Elisa Obrien MD Primary Care Physician Encounter [facility] [place] Date(s): 01/12/22 - 01/12/[address] [id number] Discharge Disposition: A-D/C Home Attending [...] 12/18/21 11:10:00 EDT, Route to Pharmacy Electronically, [facility] #[id number], Partial fill upon patient request if the prescription is for a schedule II o... Start Date: 12/18/21 Status: OrderedFREESTYLE LITE LANCETS FREESTYLE LITE LANCETS, See Instructions, # 200 each, Refills 5, Tot. Refills 5, Maintenance, GLUCOSE MONITORING 4 TIMES A DAY DURING , 12/21/21 15:36:00 EDT, WWCL PATIENT, PLEASE COMPLETE METER TEACHING WITH PATIENT. MONGOLIAN SPEAKING, Supply,... Start Date: 12/21/21 Status: OrderedFreestyle Lite Monitor See Instructions, # 1 each, Refills 0, Tot. Refills 0, Maintenance, Glucose monitoring during . WWCL PATIENT. PLEASE COMPLETE TEACHING WITH PATIENT. MONGOLIAN SPEAKING, 12/21/21 15:36:00 EDT, Supply, 165, cm, 12/18/21 10:40:00 EDT, Height, 101... Start Date: 12/21/21 Status: OrderedFREESTYLE LITE STRIPS FREESTYLE LITE STRIPS, See Instructions, # 200 each, Refills 5, Tot. Refills 5, Maintenance, GLUCOSEMONITORING 4 TIMES PER DAY DURING THE , 12/21/21 15:36:00 EDT, WWCL PATIENT, PLEASE COMPLETE METER TEACHING WITH PATIENT. MONGOLIAN SPEAKING, Claudio... Start Date: 12/21/21 Status: OrderedPrenatal Multivitamins with Folic Acid 1 mg oral tablet 1 tablet, By Mouth, Daily, # 90 tablet, 3 Refills, Maintenance, 07/21/21 17:00:00 EST, Tablet, [facility] #[id number], Partial fill upon patient request if the prescription is for a schedule II opioid drug., 1 tablet By Mouth Daily Start Date: 07/21/21 Status: Ordered Problem List Condition Effective Dates Status Health Status Informant Intrauterine growth restriction of Active (Confirmed) Migraine(Confirmed)1 [...]
--- OUTSIDE RECORDS SUMMARY | 2022-07-02 21:33 | XMS_ITS | Continuity of Care Document ---
:1990 Author Organization [facility] Address [address] [place] [address]- Care Team Providers Name Role Phone Micah ROGER, Elisa Sullivan Primary Care Physician [place] [facility] [place] Date(s): 08/19/21 - 09/18/[address] [address]- Allergies, Adverse Reactions, Alerts No Known Allergies Medications Colace sodium 100 mg oral capsule 100 mg, 1, capsule, By Mouth, 2 times a day, PRN, with plenty of water, # 20 capsule, Refills 2, Tot. Refills 2, Maintenance, for constipation, 08/19/21 16:33:00 EST, Route to Pharmacy Electronically, [facility] #[id number], Partial fill upon pat... Start Date: 08/19/21 [...] 3 Refills, Maintenance, 07/21/21 17:00:00 EST, Tablet, [facility] #[id number], Partial fill upon patient request if the [...]
--- OUTSIDE RECORDS SUMMARY | 2022-07-02 21:33 | XMS_ITS | Continuity of Care Document ---
:1990 Author Organization [facility] Address [address] [place] [address]- Care Team Providers Name Role Phone Not on Staff, PCP Primary Care Physician Unavailable Encounter [facility] [place] Date(s): 04/21/22 - 05/21/[address] [address]- Attending Physician: Phillip English Admitting Physician: Phillip English Referring Physician: AdmtrPhillip Allergies, Adverse Reactions, Alerts No Known Allergies Immunizations Given and Recorded Vaccine Date Status Refusal Reason tetanus/diphtheria/pertussis, acel(Tdap) 12/04/21 Given Medications ferrous sulfate 325 mg oral enteric coated tablet 325 mg, 1, tablet, By Mouth, Daily, # 90 tablet, Refills 0, Tot. Refills 0, Maintenance, 04/12/22 16:13:00 EDT, Route to Pharmacy Electronically, [facility] #[id number], Partial fill upon patient request if the prescription is for a schedule II o... Start Date: 04/12/22 Status: OrderedSlynd 4 mg oral tablet 1 tablet = 4 mg, By Mouth, Daily, # 84 tablet, 4 Refills, Maintenance, 04/12/22 16:14:00 EDT, Tablet, [facility] #[id number], Partial fill upon patient request if the [...]
--- OUTSIDE RECORDS SUMMARY | 2022-07-02 21:33 | XMS_ITS | Continuity of Care Document ---
:1990 Author Organization [facility] Address [address] [place] [address]- Care Team Providers Name Role Phone Not on Staff, PCP Primary Care Physician Unavailable [place] [facility] [place]08[place] - 02/07/[address] [address]- Allergies, Adverse Reactions, Alerts No Known Allergies Immunizations Given and Recorded Vaccine Date Status Refusal Reason tetanus/diphtheria/pertussis, acel(Tdap) 12/04/21 Given Medications ferrous sulfate 325 mg oral enteric coated tablet 325 mg, 1, tablet, By Mouth, Daily, # 90 tablet, Refills 0, Tot. Refills 0, Maintenance, 12/18/21 11:10:00 EDT, Route to Pharmacy Electronically, [facility] #[id number], Partial fill upon patient request if the prescription is for a schedule II o... Start Date: 12/18/21 Status: OrderedPrenatal Multivitamins with Folic Acid 1 mg oral tablet 1 tablet, By Mouth, Daily, # 90 tablet, 3 Refills, Maintenance, 07/21/21 17:00:00 EST, Tablet, [facility] #[id number], Partial fill upon patient request if the prescription is for a schedule II opioid drug., 1 tablet By Mouth Daily Start Date: 07/21/21 Status: OrderedTamiflu 75 mg oral capsule 1 capsule = 75 mg, By Mouth, 2 times a day, for 5 days, # 10 capsule, 0 Refills, Acute 02/08/22 14:28:00 EDT, 02/03/22 14:28:00 EDT, Capsule, [facility]/pharmacy #[id number], Partial fill upon patient request if the [...]
--- OUTSIDE RECORDS SUMMARY | 2022-07-02 21:33 | XMS_ITS | Continuity of Care Document ---
:1990 Author Organization [facility] Address [address] [place] [address]- Care Team Providers Name Role Phone Micah ROGER, Elisa Sullivan Primary Care Physician [place] [facility] [place] 08/14/21 - 09/13/[address] [address]- Allergies, Adverse Reactions, Alerts Substance Reaction Severity Status NKA Active Medications Colace sodium 100 mg oral capsule 100 mg, 1, capsule, By Mouth, 2 times a day, PRN, with plenty of water, # 20 capsule, Refills 2, Tot. Refills 2, Maintenance, for constipation, 08/19/21 16:33:00 EST, Route to Pharmacy Electronically, [facility] #[id number], Partial fill upon pat... Start Date: 08/19/21 [...] 3 Refills, Maintenance, 07/21/21 17:00:00 EST, Tablet, [facility] #[id number], Partial fill upon patient request if the [...]
--- OUTSIDE RECORDS SUMMARY | 2022-07-02 21:33 | XMS_ITS | Continuity of Care Document ---
:1990 Author Organization [facility] Address [address] [place] [address], [address] [place] [phone]- Care Team Providers Name Role Phone Micah ROGER, Elisa Sullivan Primary Care Physician [id number] Date(s): 07/13/21 - 08/12/21 [facility] [address] [place] [address], [address] [place] [id number] Allergies, Adverse Reactions, Alerts Substance Reaction Severity Status NKA Active Medications folic acid 0.4 mg oral tablet 1 tablet [...] 3 Refills, Maintenance, 07/21/21 17:00:00 EST, Tablet, [facility] #[id number], Partial fill upon patient request if the [...]
--- OUTSIDE RECORDS SUMMARY | 2022-07-02 21:33 | XMS_ITS | Continuity of Care Document ---
:1990 Author Organization [facility] Address [address] [place] [address]- Care Team Providers Name Role Phone Not on Staff, PCP Primary Care Physician Unavailable Encounter [facility] [place] Date(s): 03/02/22 - 04/01/[address] [address]- Allergies, Adverse Reactions, Alerts No Known Allergies [...] capsule, 0 Refills, Maintenance, 02/08/22 12:14:00EDT, Capsule, [facility]/pharmacy #[id number], Partial fill upon patient request if the prescription is for a schedule II opioid drug., 165, cm, 02/08/22 9:41:00 E... Start Date: 02/08/22 Status: Orderedferrous sulfate 325 mg oral enteric coated tablet 325 mg, 1, tablet, By Mouth, Daily, # 90 tablet, Refills 0, Tot. Refills 0, Maintenance, 12/18/21 11:10:00 EDT, Route to Pharmacy Electronically, [facility] #[id number], Partial fill upon patient request if the prescription is for a schedule II o... Start Date: 12/18/21 Status: Orderedibuprofen 800 mg oral tablet See Instructions, TAKE 1 TABLET BY MOUTH EVERY 8 HOURS NEEDED, # 60 tablet, Refills 0, Instructions Replace Required Details, Route to Pharmacy Electronically, [facility] [id number], 165, cm, 02/08/22 9:41:00 EDT, Height, 104, kg, 02/04/22 9:40:00 EDT, D... Start Date: 03/02/22 Status: OrderedoxyCODONE 5 mg oral tablet 5 mg, 1, tablet, By Mouth, Every 3 hours, PRN, for severe post-operartive pain (7-10), # 7 tablet, Refills 0, Tot. Refills 0, Maintenance, Pain , Severe, 02/08/22 12:14:00 EDT, Route to Pharmacy Electronically, [facility]/pharmacy #[id number], Partial fill upon pa... Start Date: 02/08/22 Status: OrderedPrenatal Multivitamins with Folic Acid 1 mg oral tablet 1 tablet, By Mouth, Daily, # 90 tablet, 3 Refills, Maintenance, 07/21/21 17:00:00 EST, Tablet, [facility] #[id number], Partial fill upon patient request if the prescription is for a schedule II opioid drug., 1 tablet By Mouth Daily Start Date: 07/21/21 Status: OrderedSenna 8.6 mg oral tablet 17.2 mg, 2, tablet, By Mouth, Daily, # 36 tablet, Refills 0, Tot. Refills 0, Maintenance, 02/08/22 12:14:00 EDT, Route to Pharmacy Electronically, [facility]/pharmacy #[id number] Tablet, Partial fill upon patient request if the prescription is for a schedule II op... Start Date: 02/08/22 Status: Orderedsimethicone 80 mg oral tablet, chewable 80 mg, Chew, 3 times a day, PRN, # 48 tablet, Refills 0, Tot. Refills 0, Maintenance, Gas, 02/08/22 12:14:00 EDT, Route to Pharmacy Electronically, [facility]/pharmacy #[id number], Partial fill upon patient requestif the [...]
--- NOTE | 2022-07-02 22:02 | ED_ITS ---
HPI - Wound/Laceration General Chief Complaint: Wound/Laceration Stated Complaint: left hand swollen wedding band finger most pain Time Seen by Provider: 07/02/22 22:00 Source: patient Mode of arrival: ambulatory Limitations: no limitations History of Present Illness HPI narrative: 32-year-old female presents with a ring that is constricting the blood flow to her left 4th finger. She has been trying to get the ring off for the past 2 days but has been unable to do so. Her finger is swollen and painful. She does not report any other physical complaints at this time. Onset (ago): day(s) (2) Extremity Location: left: hand (Fourth finger) Place: home Patient tetanus UTD: Yes Context: accidental Associated symptoms: pain Related Data Home Medications Medication Instructions Recorded Confirmed No Known Home Meds 09/25/20 Allergies Allergy/AdvReac Type Severity Reaction Status Date / Time No Known Allergies Allergy Verified 07/02/22 20:50 [No Known Allergies*] Review of Systems Review of Systems: Constitutional: No Fever, No Chills ENT/Mouth: No Ear Pain, No Hoarseness, No sore throat Eyes: No Eye Pain, No Swelling, No Redness, No Foreign Body Cardiovascular: No Chest Pain, No SOB Respiratory: No Cough, No Dyspnea Gastrointestinal: No Nausea, No Vomiting, No Diarrhea, No abdominal Pain Genitourinary: No Dysuria, No Hematuria Musculoskeletal: positive 4th finger swelling and pain, No Myalgias, No Joint Swelling Skin: No Skin lacerations, No rash Neuro: No Weakness, No Numbness, No Paresthesias, No Loss of Consciousness, No Dizziness, No Headache Psych: No Anxiety/Panic, No Depression Heme/Lymph: no easy bruising, no Lymphadenopathy Endocrine: No Polyuria, No Polydipsia Yes all other systems are reviewed and are negative [facility] Past Medical History Attestation statement: The following information was validated with the patient. Source: old records reviewed Surgical History History of section Family History Family History Father No problems noted. Mother No problems noted. Brother In good health Sister In good health Son In good health Social History Social History Advance Directives: No Physical Exam Vital Signs: Vital Signs: Last Vital Signs Temp 98.2 F 07/02/22 20:48 Pulse 74 07/02/22 22:55 Resp 16 07/02/22 22:55 BP 130/63 07/02/22 20:48 Pulse Ox 99 07/02/22 22:55 O2 Del Method 07/02/22 22:55 BMI result Body Mass Index 28.3 Appearance: Alert. Oriented X3. No acute distress. Eyes: Pupils equal, round and reactive to light. ENT: Pharynx normal. Neck: Normal inspection. Neck supple. CVS: Normal heart rate and rhythm. Pulses normal. Respiratory: No respiratory distress. Breath sounds normal. Abdomen: Soft and nontender. Skin: Skin warm and dry. Normal skin color. Normal skin turgor. Extremities: Swelling noted to the 4th finger of the left side. Has full range of motion, brisk capillary refill, no sensory deficit. Neuro: No motor deficit. No sensory deficit. Cranial nerves 2-12 intact. Course Course Course Narrative: 32-year-old female presents with a ring that is constricting the blood flow to the 4th left finger. Finger has been swollen for 2 days, and she was unable to get the ring off. Patient does have brisk capillary refill, equal pulses. Finger was digitally blocked with good effect, ring was removed with raptor sheer. No injury sustained from ring removal. No further care needed at this time. Patient verbalized understanding of and agrees plan of care discharge home. Verbalized understanding of signs and symptoms indicating need for emergent intervention. MDM - Wound/Laceration MDM Narrative Medical decision making narrative: Ring constriction Medical Records Attestation: I reviewed the patient's medical records. Procedures Nerve Block Nerve Block 1: Time out performed: Yes Local Anesthetic: lidocaine 2% Amount of anesthesia used (mL): 2 Side: left (Fourth finger) Nerve Blocks: digital Procedure Successful: Yes Patient Tolerated Procedure: well and no complications Discharge Plan Discharge Clinical Impression: Ring or other jewelry causing external constriction, initial encounter Patient Disposition: Home, Self-Care Additional Instructions: You were evaluated for a ring constriction to the left 4th finger. We s uccessfully cut the ring off. Follow-up with primary care physician as needed. Return to the emergency department for any new, concerning, worsening symptoms. Prescriptions: No Action No Known Home Meds Interventions: ED Discharge Assessment Last Done: 07/02/22 23:36 Discharge Date/Time: 07/02/22 23:37
[2022-07-02 22:55] VITALS: PULSE 74; RESP 16; O2SAT 99
== END 2022-07-02 23:37 | disposition home or self-care (01) ==
PROVIDERS: Emergency Provider Emergency Medicine Emergency Medical Services
DX: S61.215A Laceration without foreign body of left ring finger without damage to nail, initial encounter (principal); W26.9XXA Contact with unspecified sharp object(s), initial encounter; Y93.9 Activity, unspecified; Y92.9 Unspecified place or not applicable; Y99.9 Unspecified external cause status
CPT/HCPCS: 99282; 99283

== ENCOUNTER 2023-01-06 14:37 | Inpatient (IN) | payer OTHER, SELFPAY ==
--- NOTE | ~2023-01-06 | CT_ITS ---
EXAMINATION: CT ABDOMEN AND PELVIS WITHOUT CONTRAST CLINICAL INFORMATION: Flank pain. COMPARISON: None available. TECHNIQUE: Multidetector volumetric imaging was performed from the superior aspect of the liver through the pubic symphysis. Sagittal and coronal reformatted images were obtained on the technologist's workstation. This CT examination was performed using dose optimization techniques as appropriate, variously including the following: *Automated exposure control *Adjustment of mA and/or kV according to patient size (this includes techniques or standardized protocols for targeted exams where dose is matched to indication/reason for exam; i.e. extremities or head) *Use of iterative reconstruction technique DLP: 836 mGy-cm FINDINGS: The evaluation is limited by motion, in addition the lack of intravenous contrast limits evaluation of the solid visceral organs including the liver, spleen, pancreas, and kidneys. LUNG BASES: No focal consolidation or pleural effusion. LIVER, GALLBLADDER, AND BILIARY TREE: The liver is normal in size, shape, and attenuation. No focal hepatic lesion or biliary ductal dilatation is present. The gallbladder is not identified, either under distended or surgically removed, correlate with prior history. No significant inflammatory changes in the gallbladder fossa to suspect acute cholecystitis. PANCREAS: Unremarkable. SPLEEN: Unremarkable. ADRENAL GLANDS: Unremarkable. KIDNEYS AND URETERS: No nephrolithiasis or hydronephrosis. No significant perinephric fat stranding. BLADDER: Unremarkable. GASTROINTESTINAL TRACT: The stomach and small bowel are nondilated. The appendix is enlarged measuring up to 1.7 cm in diameter with a few high density appendicoliths and mild periappendiceal fat stranding. No pericolonic fat stranding or evidence of bowel obstruction. Moderate amount of colonic stool burden. ABDOMINAL WALL: No significant hernia is appreciated. LYMPH NODES: No lymphadenopathy by size criteria. VASCULAR: Abdominal aorta is normal in diameter. PELVIC VISCERA: There is a 5 cm simple fluid attenuating cystic appearing observation in the left ovary (3:71). OSSEOUS STRUCTURES: Unremarkable. CT/CT abdomen pelvis wo IV con IMPRESSION: Dilated appendix with multiple appendicoliths and mild periappendiceal fat stranding most consistent with acute appendicitis. The outer appendiceal diameter reaches 1.7 cm which has been associated with a higher predictive value for the presence of a mucocele; recommend surgical consultation. No nephrolithiasis or hydronephrosis. There is a 5 cm simple fluid attenuating cystic lesion in the left ovary, almost certainly benign, and for which a yearly follow-up ultrasound is recommended in an asymptomatic patient. However, if there are findings concerning for an acute ovarian abnormality such as torsion, correlation with a pelvic ultrasound is recommended.
--- NOTE | 2023-01-06 14:52 | ED_ITS ---
HPI - General Adult General Chief complaint: Abdominal Pain <TATIANA Irene Last Filed: 01/06/23 16:49> Stated complaint: sore throat glands abd pain <TATIANA Irene Last Filed: 01/06/23 16:49> Time Seen by Provider: 01/06/23 16:55 <TATIANA Irene Last Filed: 01/06/23 16:49> Source: patient <DO Dimas Machuca Last Filed: 01/06/23 17:30> Mode of arrival: ambulatory <DO Dimas Machuca Last Filed: 01/06/23 17:30> Limitations: no limitations and language barrier <DO Dimas Machuca Last Filed: 01/06/23 17:30> History of Present Illness HPI narrative: 32-year-old female airbag speaking to speak some Malaysian appears understand states she woke this morning with right lower quadrant abdominal pain. Patient was seen in triage and was sent for a CT scan which is concerning for appendicitis with an appendicolith. <DO Dimas Machuca Last Filed: 01/06/23 17:30> MD complaint: Abdominal pain <DO Dimas Machuca Last Filed: 01/06/23 17:30> Onset (ago): hour(s) <DO Dimas Machuca Last Filed: 01/06/23 17:30> Related Data Home medications: Home Medications Medication Instructions Recorded Confirmed No Known Home Meds 09/25/20 01/06/23 <TATIANA Irene Last Filed: 01/06/23 16:49> Allergies/adverse reactions: Allergies Allergy/AdvReac Type Severity Reaction Status Date / Time No Known Allergies Allergy Verified 07/02/22 20:50 [No Known Allergies*] <TATIANA Irene Last Filed: 01/06/23 16:49> Review of Systems Review of Systems: Review of systems: General: Patient denies any fever chills recent illness or falls Musculoskeletal: Denies back pain or body aches or other injuries HEENT: denies headache, runny nose, ear pain Respiratory: denies shortness of breath, cough Cardiovascular: no chest pain or palpitations : denies dysuria, frequency Abdomen: nausea vomiting abdominal pain Extremities: no swelling, no pain Skin: no diaphoresis <DO Dimas Machuca Last Filed: 01/06/23 17:30> Yes all other systems are reviewed and are negative <DO Dimas Machuca Last Filed: 01/06/23 17:30> PMFSH Past Medical History Surgical History: Surgical History History of section <TATIANA Irene - Last Filed: 01/06/23 16:49> Family History Family History: Family History Father No problems noted. Mother No problems noted. Brother In good health Sister In good health Son In good health <TATIANA Irene Last Filed: 01/06/23 16:49> Social History Social History: Social History Advance Directives: No Advance Directives Information Provided: Yes <TATIANA Irene Last Filed: 01/06/23 16:49> Physical Exam ED Vital Signs: Vital Signs - 24 hr 01/06/23 14:54 Temperature 97 F Pulse Rate 94 Respiratory Rate 18 Blood Pressure 126/88 Pulse Oximetry 96 Oxygen Delivery Method Room Air BMI result Body Mass Index 32.8 <TATIANA Irene Last Filed: 01/06/23 16:49> Vital Signs - 24 hr 01/06/23 14:54 Temperature 97 F Pulse Rate 94 Respiratory Rate 18 Blood Pressure 126/88 Pulse Oximetry 96 Oxygen Delivery Method Room Air BMI result Body Mass Index 32.8 <Ralph Clark DO - Last Filed: 01/06/23 17:30> General: Well-appearing well-nourished in no signs of distress HEENT: Normocephalic atraumatic Neck: No signs of JVD, no masses no tenderness or lymphadenopathy Cardiovascular: Regular rate and rhythm Respiratory: Clear to auscultation bilaterally Abdomen: RLQ and midline tenderness with guarding no masses Extremities: Normal pedal pulses no signs of edema Skin: Dry warm no rashes Back: No tenderness full ROM <DO Dimas Machuca Last Filed: 01/06/23 17:30> Course Course Course Narrative: This is an RME: Additional HPI, ROS, PE not included below will be deferred to primary provider. 32 year old female presents with a sore throat and lymphadenopathy and flank pain that radiates to the lower abdomen since this morning, worsening. Denies sick contacts. Patient endorses dysuria. Reports she has a history of cysts on her ovaries that have caused her pain before. Denies . Plan: Labs, viral testing, imaging <TATIAAN Irene - Last Filed: 01/06/23 16:49> Medications Administered Generic Name Dose Route Start Last Admin Trade Name Freq PRN Reason Stop Dose Admin Sodium Chloride 1,000 mls @ 999 mls/hr 01/06/23 17:15 01/06/23 17:19 Ns IV 01/06/23 18:15 999 mls/hr .[id number] CARLOS Administration Discontinued Medications Generic Name Dose Route Start Last Admin Trade Name Freq PRN Reason Stop Dose Admin Morphine Sulfate 4 mg 01/06/23 17:02 01/06/23 17:19 Morphine Sulfate 4 Mg/Ml Cartridge IVPUSH 01/06/23 17:03 4 mg ONCE ONE Administration Protocol Ondansetron HCl 4 mg 01/06/23 17:02 01/06/23 17:19 Ondansetron Hcl 4 Mg/2 Ml Vial IVPUSH 01/06/23 17:03 4 mg ONCE ONE Administration <TATIANA Irene - Last Filed: 01/06/23 16:49> Medications Administered Generic Name Dose Route Start Last Admin Trade Name Freq PRN Reason Stop Dose Admin Sodium Chloride 1,000 mls @ 999 mls/hr 01/06/23 17:15 01/06/23 17:19 Ns IV 01/06/23 18:15 999 mls/hr .[id number] CAROLS Administration Discontinued Medications Generic Name Dose Route Start Last Admin Trade Name Freq PRN Reason Stop Dose Admin Morphine Sulfate 4 mg 01/06/23 17:02 01/06/23 17:19 Morphine Sulfate 4 Mg/Ml Cartridge IVPUSH 01/06/23 17:03 4 mg ONCE ONE Administration Protocol Ondansetron HCl 4 mg 01/06/23 17:02 01/06/23 17:19 Ondansetron Hcl 4 Mg/2 Ml Vial IVPUSH 01/06/23 17:03 4 mg ONCE ONE Administration <Ralph Clark DO - Last Filed: 01/06/23 17:30> Medical Decision Making Medical Decision Making [facility] Narrative: Patient CT scan which I reviewed looks like patient has appendicitis we did consult Dr. Greenwood from surgery immediately. <Ralph Clark DO - Last Filed: 01/06/23 17:30> Differential Diagnosis Differential Diagnoses: The differential diagnosis associated with the presentation includes <Ralph Clark DO - Last Filed: 01/06/23 17:30> Appendicitis small-bowel obstruction diverticulitis acute surgical abdomen less likely coli cystitis the patient has pain is midline to right lower quadrant <Ralph Clark DO - Last Filed: 01/06/23 17:30> Admission/Observation Consideration of admission/observation: Escalation of care including admission/observation considered <Ralph Clark DO - Last Filed: 01/06/23 17:30> Consult Healthcare Provider Management of the patient was discussed with: Edi Analyst <Ralph Clark DO - Last Filed: 01/06/23 17:30> Dr. Holloway for appendicitis <Ralph Clark DO - Last Filed: 01/06/23 17:30> Lab Data [facility] Lab Attestation statement: I reviewed the patient's lab results. <Ralph Clark DO - Last Filed: 01/06/23 17:30> Result Diagrams: 01/06/23 15:16 01/06/23 15:16 <TATIANA Irene - Last Filed: 01/06/23 16:49> Labs: Lab Results 01/06/23 01/06/23 01/06/23 Range/Units 15:16 15:16 15:16 WBC 7.7 (4.8-10.8) X10*3/uL RBC 4.72 (4.20-5.50) X10*6/uL Hgb 13.6 (12.0-16.0) g/dl Hct 39.5 (37.0-47.0) % MCV 83.7 (80.0-98.0) fL MCH 28.8 (27.0-33.0) pg MCHC 34.4 (31.0-35.0) g/dl RDW 13.1 (11.0-16.0) % Plt Count 197 (160-400) X10*3/uL MPV 11.3 (9.4-12.3) fL Immature Gran % (Auto) 0.3 (0.0-0.4) % Neut % (Auto) 63.6 (45-73) % Lymph % (Auto) 28.5 (20-40) % [place] % (Auto) 5.2 (2-11) % Eos % (Auto) 2.0 (0-4) % Baso % (Auto) 0.4 (0-2) % Lymph # (Auto) 2.2 (1.2-4.9) X10*3/uL [place] # (Auto) 0.4 (0.1-1.2) X10*3/uL Eos # (Auto) 0.2 (0.0-0.4) X10*3/uL Baso # (Auto) 0.0 (0.0-0.2) X10*3/uL Abs Immat Gran (auto) 0.02 (0.00-0.03) X10*3/uL Absolute Neuts (auto) 4.9 (2.0-8.3) x10*3/uL Absolute Nucleated RBC 0.000 (0.0-0.012) X10*3/uL Nucleated RBC % (auto) 0.0 (0.0-0.2) /100WBC Sodium 138 (135-145) mmol/L Potassium 4.2 (3.3-5.1) mmol/L Chloride 106 (96-108) mmol/L Carbon Dioxide 23 (22-29) mmol/L Anion Gap 13 (12-20) BUN 7 L (9-16) mg/dL Creatinine 0.70 (0.5-1.4) mg/dL Estim Creat Clear Calc 153.3 Estimated GFR > 60 Random Glucose 97 (60-115) mg/dL Calcium 9.1 (8.4-10.2) mg/dL Magnesium 2.3 (1.6-2.6) mg/dL Total Bilirubin 0.5 (0.0-1.0) mg/dL AST 11 (5-31) U/L ALT 14 (0-31) U/L Alkaline Phosphatase 84 (39-117) U/L Total Protein 7.3 (6.5-8.0) g/dL Albumin 4.3 (3.5-5.0) g/dL Lipase 25 (8-78) U/L Beta HCG, Quant < 2 mIU/mL Urine Color Urine Appearance Urine pH (5.0-9.0) Ur Specific [place] (1.005-1.025) Urine Protein (Neg-Trace) mg/dL Urine Glucose (UA) (Negative) mg/dL Urine Ketones (Negative) mg/dL Urine Blood (Negative) Urine Nitrite (Negative) Ur Leukocyte Esterase (Negative) Urine RBC (0-2) /HPF Urine WBC (0-5) /HPF Ur Squamous Epith Cells (0-2) /HPF Urine Bacteria (None Seen) Hyaline Casts (0-2) /LPF COVID-19 (MARLENA) (Negative) COVID-19 Clin Com Influenza Type A (RICCI) Negative (Negative) Influenza Type B (RICCI) Negative (Negative) Influenza A & B Note See Note 01/06/23 01/06/23 Range/Units 15:16 15:16 WBC (4.8-10.8) X10*3/uL RBC (4.20-5.50) X10*6/uL Hgb (12.0-16.0) g/dl Hct (37.0-47.0) % MCV (80.0-98.0) fL MCH (27.0-33.0) pg MCHC (31.0-35.0) g/dl RDW (11.0-16.0) % Plt Count (160-400) X10*3/uL MPV (9.4-12.3) fL Immature Gran % (Auto) (0.0-0.4) % Neut % (Auto) (45-73) % Lymph % (Auto) (20-40) % [place] % (Auto) (2-11) % Eos % (Auto) (0-4) % Baso % (Auto) (0-2) % Lymph # (Auto) (1.2-4.9) X10*3/uL [place] # (Auto) (0.1-1.2) X10*3/uL Eos # (Auto) (0.0-0.4) X10*3/uL Baso # (Auto) (0.0-0.2) X10*3/uL Abs Immat Gran (auto) (0.00-0.03) X10*3/uL Absolute Neuts (auto) (2.0-8.3) x10*3/uL Absolute Nucleated RBC (0.0-0.012) X10*3/uL Nucleated RBC % (auto) (0.0-0.2) /100WBC Sodium (135-145) mmol/L Potassium (3.3-5.1) mmol/L Chloride (96-108) mmol/L Carbon Dioxide (22-29) mmol/L Anion Gap (12-20) BUN (9-16) mg/dL Creatinine (0.5-1.4) mg/dL Estim Creat Clear Calc Estimated GFR Random Glucose (60-115) mg/dL Calcium (8.4-10.2) mg/dL Magnesium (1.6-2.6) mg/dL Total Bilirubin (0.0-1.0) mg/dL AST (5-31) U/L ALT (0-31) U/L Alkaline Phosphatase (39-117) U/L Total Protein (6.5-8.0) g/dL Albumin (3.5-5.0) g/dL Lipase (8-78) U/L Beta HCG, Quant mIU/mL Urine Color Yellow Urine Appearance Clear Urine pH 6.5 (5.0-9.0) Ur Specific [place] 1.010 (1.005-1.025) Urine Protein Negative (Neg-Trace) mg/dL Urine Glucose (UA) Negative (Negative) mg/dL Urine Ketones Negative (Negative) mg/dL Urine Blood Negative (Negative) Urine Nitrite Negative (Negative) Ur Leukocyte Esterase Trace H (Negative) Urine RBC 0-2 (0-2) /HPF Urine WBC 0-5 (0-5) /HPF Ur Squamous Epith Cells 11-20 (0-2) /HPF Urine Bacteria None Seen (None Seen) Hyaline Casts 0-2 (0-2) /LPF COVID-19 (MARLENA) Negative (Negative) COVID-19 Clin Com See Note Influenza Type A (RICCI) (Negative) Influenza Type B (RICCI) (Negative) Influenza A & B Note <TATIANA Irene - Last Filed: 01/06/23 16:49> Lab Results 01/06/23 01/06/23 01/06/23 Range/Units 15:16 15:16 15:16 WBC 7.7 (4.8-10.8) X10*3/uL RBC 4.72 (4.20-5.50) X10*6/uL Hgb 13.6 (12.0-16.0) g/dl Hct 39.5 (37.0-47.0) % MCV 83.7 (80.0-98.0) fL MCH 28.8 (27.0-33.0) pg MCHC 34.4 (31.0-35.0) g/dl RDW 13.1 (11.0-16.0) % Plt Count 197 (160-400) X10*3/uL MPV 11.3 (9.4-12.3) fL Immature Gran % (Auto) 0.3 (0.0-0.4) % Neut % (Auto) 63.6 (45-73) % Lymph % (Auto) 28.5 (20-40) % [place] % (Auto) 5.2 (2-11) % Eos % (Auto) 2.0 (0-4) % Baso % (Auto) 0.4 (0-2) % Lymph # (Auto) 2.2 (1.2-4.9) X10*3/uL [place] # (Auto) 0.4 (0.1-1.2) X10*3/uL Eos # (Auto) 0.2 (0.0-0.4) X10*3/uL Baso # (Auto) 0.0 (0.0-0.2) X10*3/uL Abs Immat Gran (auto) 0.02 (0.00-0.03) X10*3/uL Absolute Neuts (auto) 4.9 (2.0-8.3) x10*3/uL Absolute Nucleated RBC 0.000 (0.0-0.012) X10*3/uL Nucleated RBC % (auto) 0.0 (0.0-0.2) /100WBC Sodium 138 (135-145) mmol/L Potassium 4.2 (3.3-5.1) mmol/L Chloride 106 (96-108) mmol/L Carbon Dioxide 23 (22-29) mmol/L Anion Gap 13 (12-20) BUN 7 L (9-16) mg/dL Creatinine 0.70 (0.5-1.4) mg/dL Estim Creat Clear Calc 153.3 Estimated GFR > 60 Random Glucose 97 (60-115) mg/dL Calcium 9.1 (8.4-10.2) mg/dL Magnesium 2.3 (1.6-2.6) mg/dL Total Bilirubin 0.5 (0.0-1.0) mg/dL AST 11 (5-31) U/L ALT 14 (0-31) U/L Alkaline Phosphatase 84 (39-117) U/L Total Protein 7.3 (6.5-8.0) g/dL Albumin 4.3 (3.5-5.0) g/dL Lipase 25 (8-78) U/L Beta HCG, Quant < 2 mIU/mL Urine Color Urine Appearance Urine pH (5.0-9.0) Ur Specific [place] (1.005-1.025) Urine Protein (Neg-Trace) mg/dL Urine Glucose (UA) (Negative) mg/dL Urine Ketones (Negative) mg/dL Urine Blood (Negative) Urine Nitrite (Negative) Ur Leukocyte Esterase (Negative) Urine RBC (0-2) /HPF Urine WBC (0-5) /HPF Ur Squamous Epith Cells (0-2) /HPF Urine Bacteria (None Seen) Hyaline Casts (0-2) /LPF COVID-19 (MARLENA) (Negative) COVID-19 Clin Com Influenza Type A (RICCI) Negative (Negative) Influenza Type B (RICCI) Negative (Negative) Influenza A & B Note See Note 01/06/23 01/06/23 Range/Units 15:16 15:16 WBC (4.8-10.8) X10*3/uL RBC (4.20-5.50) X10*6/uL Hgb (12.0-16.0) g/dl Hct (37.0-47.0) % MCV (80.0-98.0) fL MCH (27.0-33.0) pg MCHC (31.0-35.0) g/dl RDW (11.0-16.0) % Plt Count (160-400) X10*3/uL MPV (9.4-12.3) fL Immature Gran % (Auto) (0.0-0.4) % Neut % (Auto) (45-73) % Lymph % (Auto) (20-40) % [place] % (Auto) (2-11) % Eos % (Auto) (0-4) % Baso % (Auto) (0-2) % Lymph # (Auto) (1.2-4.9) X10*3/uL [place] # (Auto) (0.1-1.2) X10*3/uL Eos # (Auto) (0.0-0.4) X10*3/uL Baso # (Auto) (0.0-0.2) X10*3/uL Abs Immat Gran (auto) (0.00-0.03) X10*3/uL Absolute Neuts (auto) (2.0-8.3) x10*3/uL Absolute Nucleated RBC (0.0-0.012) X10*3/uL Nucleated RBC % (auto) (0.0-0.2) /100WBC Sodium (135-145) mmol/L Potassium (3.3-5.1) mmol/L Chloride (96-108) mmol/L Carbon Dioxide (22-29) mmol/L Anion Gap (12-20) BUN (9-16) mg/dL Creatinine (0.5-1.4) mg/dL Estim Creat Clear Calc Estimated GFR Random Glucose (60-115) mg/dL Calcium (8.4-10.2) mg/dL Magnesium (1.6-2.6) mg/dL Total Bilirubin (0.0-1.0) mg/dL AST (5-31) U/L ALT (0-31) U/L Alkaline Phosphatase (39-117) U/L Total Protein (6.5-8.0) g/dL Albumin (3.5-5.0) g/dL Lipase (8-78) U/L Beta HCG, Quant mIU/mL Urine Color Yellow Urine Appearance Clear Urine pH 6.5 (5.0-9.0) Ur Specific [place] 1.010 (1.005-1.025) Urine Protein Negative (Neg-Trace) mg/dL Urine Glucose (UA) Negative (Negative) mg/dL Urine Ketones Negative (Negative) mg/dL Urine Blood Negative (Negative) Urine Nitrite Negative (Negative) Ur Leukocyte Esterase Trace H (Negative) Urine RBC 0-2 (0-2) /HPF Urine WBC 0-5 (0-5) /HPF Ur Squamous Epith Cells 11-20 (0-2) /HPF Urine Bacteria None Seen (None Seen) Hyaline Casts 0-2 (0-2) /LPF COVID-19 (MARLENA) Negative (Negative) COVID-19 Clin Com See Note Influenza Type A (RICCI) (Negative) Influenza Type B (RICCI) (Negative) Influenza A & B Note <Ralph Clark DO - Last Filed: 01/06/23 17:30> Independent Interpretation I performed an independent interpretation of an: CT Scan <Ralph Clark DO - Last Filed: 01/06/23 17:30> Interpretation: Concerning for appendicitis <Ralph Clark DO - Last Filed: 01/06/23 17:30> Radiology Impression Discussion of test interpretation with radiology: I discussed test interpretation with the radiologist and I have reviewed the radiologist's reading. <Ralph Clark DO - Last Filed: 01/06/23 17:30> Prescription Management I considered prescription management with: Pain Medication and Antibiotic <Ralph Clark DO - Last Filed: 01/06/23 17:30> Started on morphine Zosyn fluids and Zofran immediately upon arrival. <Ralph Clark DO - Last Filed: 01/06/23 17:30> Discharge Plan Discharge Clinical Impression: Acute appendicitis <TATIANA Irene Last Filed: 01/06/23 16:49> Patient Disposition: Admitted As Inpatient <TATIANA Irene - Last Filed: 01/06/23 16:49>
[2023-01-06 14:54] VITALS: BP 126/88; PULSE 94; RESP 18; TEMP 36.1; O2SAT 96; BMI 32.8
[2023-01-06 15:24] LABS: MANUAL DIFF FLAG NO
[2023-01-06 15:26] LABS: Basophils Percent Auto 0.4 % (0-2); Eosinophils Absolute Auto 0.2 X10*3/uL (0.0-0.4); Hematocrit 39.5 % (37.0-47.0); Hemoglobin 13.6 g/dl (12.0-16.0); Imm Gran Abs Auto 0.02 X10*3/uL (0.00-0.03); Imm Gran Pct Auto 0.3 % (0.0-0.4); Lymphocytes Absolute Auto 2.2 X10*3/uL (1.2-4.9); Lymphocytes Percent Auto 28.5 % (20-40); Mean Corpuscular HGB Conc 34.4 g/dl (31.0-35.0); Mean Corpuscular Hemoglobin 28.8 pg (27.0-33.0); Mean Corpuscular Volume 83.7 fL (80.0-98.0); Mean Platelet Volume 11.3 fL (9.4-12.3); Monocytes Absolute Auto 0.4 X10*3/uL (0.1-1.2); Monocytes Percent Auto 5.2 % (2-11); Neutrophils Absolute Auto 4.9 x10*3/uL (2.0-8.3); Neutrophils Percent Auto 63.6 % (45-73); Platelet Count 197 X10*3/uL (160-400); Red Blood Count 4.72 X10*6/uL (4.20-5.50); Red Cell Distribution Width 13.1 % (11.0-16.0); White Blood Count 7.7 X10*3/uL (4.8-10.8)
[2023-01-06 15:27] LABS: Appearance Urine Clear; Color Urine Yellow; Glucose Urine UA Negative (Negative); Leukocyte Esterase Urine Trace (Negative); Nitrite Urine Negative (Negative); PH 6.5 (5.0-9.0); UMIC TRIGGER UACC YES; Urine Blood Negative (Negative); Urine Ketones Negative (Negative); Urine Protein Negative (Neg-Trace)
[2023-01-06 15:29] LABS: Bacteria Urine None Seen (None Seen); Hyaline Casts Urine 0-2 /LPF (0-2); RBC Urine 0-2 /HPF (0-2); WBC Urine 0-5 /HPF (0-5)
[2023-01-06 15:40] LABS: COVID-19 Test Negative (Negative); IDNOW Serial# 08D9AD1C; IDNOW Serial# BCCEAD1C; Influenza A Negative (Negative); Influenza B2 Negative (Negative)
[2023-01-06 15:53] LABS: Alanine Aminotransferase 14 U/L (0-31); Albumin Level 4.3 g/dL (3.5-5.0); Alkaline Phosphatase 84 U/L (39-117); Anion Gap 13 (12-20); Aspartate Amino Transferase 11 U/L (5-31); Bilirubin Total 0.5 mg/dL (0.0-1.0); Blood Urea Nitrogen 7 mg/dL (9-16); Calcium 9.1 mg/dL (8.4-10.2); Carbon Dioxide 23 mmol/L (22-29); Chloride 106 mmol/L (96-108); Creatinine Clr Calc Pharmacy 153.3; Estimated Glomerular Filt Rate > 60; Glucose Random 97 mg/dL (60-115); Lipase 25 U/L (8-78); Magnesium 2.3 mg/dL (1.6-2.6); Potassium 4.2 mmol/L (3.3-5.1); Sodium 138 mmol/L (135-145); Total Protein 7.3 g/dL (6.5-8.0)
[2023-01-06 16:02] LABS: HCG Quantitative < 2 mIU/mL
--- NOTE | 2023-01-06 16:59 | ED_ITS ---
HPI - Abdominal Pain General Chief Complaint: Abdominal Pain Stated Complaint: sore throat glands abd pain Time Seen by Provider: 01/06/23 16:55 Source: patient Mode of arrival: wheelchair Limitations: no limitations and language barrier History of Present Illness HPI narrative: 32-year-old female presents emergency room complaining of right lower quadrant abdominal pain that woke up from sleep last night. Patient's arm was weak and did use clicker operator services talk to the patient she does fevers chills she has had 2 C sections in the past. Patient is seen in triage had a CT scan ordered MD elicited complaint: abdominal pain Related Data Home Medications Medication Instructions Recorded Confirmed No Known Home Meds 09/25/20 01/06/23 Allergies Allergy/AdvReac Type Severity Reaction Status Date / Time No Known Allergies Allergy Verified 07/02/22 20:50 [No Known Allergies*] Review of Systems Review of Systems Review of systems: General: Patient denies any fever chills recent illness or falls Musculoskeletal: Denies back pain or body aches or other injuries HEENT: denies headache, runny nose, ear pain Respiratory: denies shortness of breath, cough Cardiovascular: no chest pain or palpitations : denies dysuria, frequency Abdomen: nausea vomiting abdominal pain Extremities: no swelling, no pain Skin: no diaphoresis Yes all other systems are reviewed and are negative PMFSH Past Medical History Surgical History History of section Family History Family History Father No problems noted. Mother No problems noted. Brother In good health Sister In good health Son In good health Social History Social History Advance Directives: No Advance Directives Information Provided: Yes Physical Exam ED Vital Signs: Vital Signs - 24 hr 01/06/23 14:54 Temperature 97 F Pulse Rate 94 Respiratory Rate 18 Blood Pressure 126/88 Pulse Oximetry 96 Oxygen Delivery Method Room Air BMI result Body Mass Index 32.8 General: Well-appearing well-nourished in no signs of distress HEENT: Normocephalic atraumatic Neck: No signs of JVD, no masses no tenderness or lymphadenopathy Cardiovascular: Regular rate and rhythm Respiratory: Clear to auscultation bilaterally Abdomen: RLQ and midline tenderness with guarding no masses Extremities: Normal pedal pulses no signs of edema Skin: Dry warm no rashes Back: No tenderness full ROM Medical Decision Making Differential Diagnosis Differential Diagnoses: The differential diagnosis associated with the presentation includes Appendicitis bowel rupture Admission/Observation Consideration of admission/observation: Escalation of care including admission/observation considered Dr. Greenwood to admit Consult Healthcare Provider Management of the patient was discussed with: Microwave Radio Technician Dr Greenwood Lab Data MDM Lab Attestation statement: I reviewed the patient's lab results. 01/06/23 15:16 01/06/23 15:16 Labs: Lab Results 01/06/23 01/06/23 01/06/23 Range/Units 15:16 15:16 15:16 WBC 7.7 (4.8-10.8) X10*3/uL RBC 4.72 (4.20-5.50) X10*6/uL Hgb 13.6 (12.0-16.0) g/dl Hct 39.5 (37.0-47.0) % MCV 83.7 (80.0-98.0) fL MCH 28.8 (27.0-33.0) pg MCHC 34.4 (31.0-35.0) g/dl RDW 13.1 (11.0-16.0) % Plt Count 197 (160-400) X10*3/uL MPV 11.3 (9.4-12.3) fL Immature Gran % (Auto) 0.3 (0.0-0.4) % Neut % (Auto) 63.6 (45-73) % Lymph % (Auto) 28.5 (20-40) % [place] % (Auto) 5.2 (2-11) % Eos % (Auto) 2.0 (0-4) % Baso % (Auto) 0.4 (0-2) % Lymph # (Auto) 2.2 (1.2-4.9) X10*3/uL [place] # (Auto) 0.4 (0.1-1.2) X10*3/uL Eos # (Auto) 0.2 (0.0-0.4) X10*3/uL Baso # (Auto) 0.0 (0.0-0.2) X10*3/uL Abs Immat Gran (auto) 0.02 (0.00-0.03) X10*3/uL Absolute Neuts (auto) 4.9 (2.0-8.3) x10*3/uL Absolute Nucleated RBC 0.000 (0.0-0.012) X10*3/uL Nucleated RBC % (auto) 0.0 (0.0-0.2) /100WBC Sodium 138 (135-145) mmol/L Potassium 4.2 (3.3-5.1) mmol/L Chloride 106 (96-108) mmol/L Carbon Dioxide 23 (22-29) mmol/L Anion Gap 13 (12-20) BUN 7 L (9-16) mg/dL Creatinine 0.70 (0.5-1.4) mg/dL Estim Creat Clear Calc 153.3 Estimated GFR > 60 Random Glucose 97 (60-115) mg/dL Calcium 9.1 (8.4-10.2) mg/dL Magnesium 2.3 (1.6-2.6) mg/dL Total Bilirubin 0.5 (0.0-1.0) mg/dL AST 11 (5-31) U/L ALT 14 (0-31) U/L Alkaline Phosphatase 84 (39-117) U/L Total Protein 7.3 (6.5-8.0) g/dL Albumin 4.3 (3.5-5.0) g/dL Lipase 25 (8-78) U/L Beta HCG, Quant < 2 mIU/mL Urine Color Urine Appearance Urine pH (5.0-9.0) Ur Specific [place] (1.005-1.025) Urine Protein (Neg-Trace) mg/dL Urine Glucose (UA) (Negative) mg/dL Urine Ketones (Negative) mg/dL Urine Blood (Negative) Urine Nitrite (Negative) Ur Leukocyte Esterase (Negative) Urine RBC (0-2) /HPF Urine WBC (0-5) /HPF Ur Squamous Epith Cells (0-2) /HPF Urine Bacteria (None Seen) Hyaline Casts (0-2) /LPF COVID-19 (MARLENA) (Negative) COVID-19 Clin Com Influenza Type A (RICCI) Negative (Negative) Influenza Type B (RICCI) Negative (Negative) Influenza A & B Note See Note 01/06/23 01/06/23 Range/Units 15:16 15:16 WBC (4.8-10.8) X10*3/uL RBC (4.20-5.50) X10*6/uL Hgb (12.0-16.0) g/dl Hct (37.0-47.0) % MCV (80.0-98.0) fL MCH (27.0-33.0) pg MCHC (31.0-35.0) g/dl RDW (11.0-16.0) % Plt Count (160-400) X10*3/uL MPV (9.4-12.3) fL Immature Gran % (Auto) (0.0-0.4) % Neut % (Auto) (45-73) % Lymph % (Auto) (20-40) % [place] % (Auto) (2-11) % Eos % (Auto) (0-4) % Baso % (Auto) (0-2) % Lymph # (Auto) (1.2-4.9) X10*3/uL [place] # (Auto) (0.1-1.2) X10*3/uL Eos # (Auto) (0.0-0.4) X10*3/uL Baso # (Auto) (0.0-0.2) X10*3/uL Abs Immat Gran (auto) (0.00-0.03) X10*3/uL Absolute Neuts (auto) (2.0-8.3) x10*3/uL Absolute Nucleated RBC (0.0-0.012) X10*3/uL Nucleated RBC % (auto) (0.0-0.2) /100WBC Sodium (135-145) mmol/L Potassium (3.3-5.1) mmol/L Chloride (96-108) mmol/L Carbon Dioxide (22-29) mmol/L Anion Gap (12-20) BUN (9-16) mg/dL Creatinine (0.5-1.4) mg/dL Estim Creat Clear Calc Estimated GFR Random Glucose (60-115) mg/dL Calcium (8.4-10.2) mg/dL Magnesium (1.6-2.6) mg/dL Total Bilirubin (0.0-1.0) mg/dL AST (5-31) U/L ALT (0-31) U/L Alkaline Phosphatase (39-117) U/L Total Protein (6.5-8.0) g/dL Albumin (3.5-5.0) g/dL Lipase (8-78) U/L Beta HCG, Quant mIU/mL Urine Color Yellow Urine Appearance Clear Urine pH 6.5 (5.0-9.0) Ur Specific [place] 1.010 (1.005-1.025) Urine Protein Negative (Neg-Trace) mg/dL Urine Glucose (UA) Negative (Negative) mg/dL Urine Ketones Negative (Negative) mg/dL Urine Blood Negative (Negative) Urine Nitrite Negative (Negative) Ur Leukocyte Esterase Trace H (Negative) Urine RBC 0-2 (0-2) /HPF Urine WBC 0-5 (0-5) /HPF Ur Squamous Epith Cells 11-20 (0-2) /HPF Urine Bacteria None Seen (None Seen) Hyaline Casts 0-2 (0-2) /LPF COVID-19 (MARLENA) Negative (Negative) COVID-19 Clin Com See Note Influenza Type A (RICCI) (Negative) Influenza Type B (RICCI) (Negative) Influenza A & B Note Radiology Impression Discussion of test interpretation with radiology: I discussed test interpretation with the radiologist and I have reviewed the radiologist's reading. Medications Administered Generic Name Dose Route Start Last Admin Trade Name Freq PRN Reason Stop Dose Admin Sodium Chloride 1,000 mls @ 999 mls/hr 01/06/23 17:15 01/06/23 17:19 Ns IV 01/06/23 18:15 999 mls/hr .[id number] CARLOS Administration Discontinued Medications Generic Name Dose Route Start Last Admin Trade Name Freq PRN Reason Stop Dose Admin Morphine Sulfate 4 mg 01/06/23 17:02 01/06/23 17:19 Morphine Sulfate 4 Mg/Ml Cartridge IVPUSH 01/06/23 17:03 4 mg ONCE ONE Administration Protocol Ondansetron HCl 4 mg 01/06/23 17:02 01/06/23 17:19 Ondansetron Hcl 4 Mg/2 Ml Vial IVPUSH 01/06/23 17:03 4 mg ONCE ONE Administration Discharge Plan Discharge Clinical Impression: Acute appendicitis Patient Disposition: Admitted As Inpatient Prescriptions: No Action No Known Home Meds
[2023-01-06] MEDS: ondansetron HCL 4 MG/2 ML VIAL IVPUSH (17:19)
[2023-01-06] MEDS: 0.9 % Sodium Chloride 1,000 ML 999 ML IV (17:19)
[2023-01-06] MEDS: Morphine Sulfate 4 MG/ML CARTRIDGE IVPUSH ×2 (17:19→18:20)
--- NOTE | 2023-01-06 17:24 | PHA.MEDREC ---
MED REC COMPLETED VIA [employer] [employer] Pharmacy Consult ? Medication Reconciliation Pharmacy has completed the medication reconciliation.
[2023-01-06] MEDS: Piperacillin Sodium/Tazobactam 4.5 GM in 0.9 % Sodium Chloride 100 ML IV (17:48)
[2023-01-06 18:16] LABS: COVID-19 Test Negative (Negative); IDNOW Serial# BCCEAD1C
[2023-01-06 18:28] LABS: C Reactive Protein 0.17 mg/dL (< or = 0.50)
[2023-01-06 19:05] LABS: Erythrocyte Sedimentation Rate 14 MM/HR (0-20)
[2023-01-06 19:39] VITALS: BP 123/76; PULSE 82; RESP 16; TEMP 36.6; O2SAT 100
[2023-01-06] MEDS: HYDROmorphone HCl 1 MG/ML SYRINGE 0.5 MG IVPUSH (21:06)
[2023-01-06 21:38] VITALS: BP 121/71; PULSE 74; RESP 14; O2SAT 99
--- NOTE | 2023-01-06 23:21 | PC.NURSE ---
assumed care of pt at 2300
[2023-01-06] MEDS: Dextrose 5 % and 0.45 % NaCl 1,000 ML 100 ML IVCONT (23:30)
[2023-01-07] VITALS (11 sets, daily range): BP systolic 109–153; BP diastolic 54–78; PULSE 84–116; RESP 15–20; TEMP 36.6–37.7; O2SAT 96–100; BMI 31.9
[2023-01-07] MEDS: Acetaminophen 325 MG TABLET 650 MG PO (00:26)
--- NOTE | 2023-01-07 00:38 | PC.NURSE ---
pt reporting 9/10 pain to RLQ increased from 5/10 pain 1 hr ago. medicated with tylenol per mar as dilaudid iv not yet due. provided with heating pack as well. will CTM
[2023-01-07] MEDS: ondansetron HCL 4 MG/2 ML VIAL IVPUSH (01:41)
[2023-01-07] MEDS: HYDROmorphone HCl 1 MG/ML SYRINGE 0.5 MG IVPUSH ×3 (01:41→09:39)
--- NOTE | 2023-01-07 08:08 | PC.NURSE ---
pt continues to report pain. she was seen by the surgeon this am awaiting OR time no vomiting, provided ice chips
[2023-01-07] MEDS: Dextrose 5 % and 0.45 % NaCl 1,000 ML 100 ML IVCONT (09:47)
--- NOTE | 2023-01-07 09:49 | PC.NURSE ---
medicated for pain. Possible 1200 surgery report given for admission to [facility] floor
--- NOTE | 2023-01-07 10:00 | P.HPGS_ITS ---
History of Present Illness History of Present Illness Date of Service: 01/07/23 <Ana Wakefield PA-C - Last Filed: 01/07/23 10:14> 01/07/23 <Jae Greenwood MD - Last Filed: 01/07/23 12:08> Chief complaint: abdominal pain <JACQUELIN Lam Last Filed: 01/07/23 10:14> Narrative: Sharon Torres is a 32 year old female with no significant PMH who presented to the ED with complaints of abdominal pain. She reports the pain began in the RLQ and woke her out of sleep. It radiates to her back. It is associated with nausea, vomiting and fevers at home. Due to the severity and persistence of the pain, she presented to the ED for evaluation. Work up included CBC, BMP and LFTs which were all WNL. CT scan was performed which showed enlarged appendix with a few appendicoliths and mild periappendiceal fat stranding. <Ana Wakefield PA-C - Last Filed: 01/07/23 10:14> Review of Systems Constitutional: Constitutional: Denies chills and Reports fever(s) <Chelsie Wakefield PA-C - Last Filed: 01/07/23 10:14> ENT: Denies dizziness and Reports sore throat <JACQUELIN Lam Last Filed: 01/07/23 10:14> Cardiovascular: Cardiovascular: Denies chest pain <GEORGINA Lam Last Filed: 01/07/23 10:14> Respiratory: Respiratory: Denies cough <JACQUELIN Lam Last Filed: 01/07/23 10:14> Gastrointestinal: Gastrointestinal: Reports as per HPI <JACQUELIN Lam Last Filed: 01/07/23 10:14> Genitourinary: Genitourinary: Denies hematuria and Denies dysuria <JACQUELIN Lam Last Filed: 01/07/23 10:14> Integumentary/Breasts: Skin/Breast: Denies rash and Denies jaundice <JACQUELIN Lam Last Filed: 01/07/23 10:14> Neurologic: Denies dizziness <JACQUELIN Lam Last Filed: 01/07/23 10:14> [facility] Family History Family History: Family History Father No problems noted. Mother No problems noted. Brother In good health Sister In good health Son In good health <Ana Wakefield PA-C - Last Filed: 01/07/23 10:14> Surgical History Surgical History: Surgical History History of section <JACQUELIN Lam Last Filed: 01/07/23 10:14> Social History Social History: Social History Household Members: Spouse Patient Tobacco Use Status: Tobacco use Unknown Smoked in Last 30 Days: No Use of substances other than those prescribed or required for medical reasons: No Do you feel safe in your current relationship?: Yes Advance Directives: No Advance Directives Information Provided: Yes Do you have thoughts of harming others: None Do you have a plan to hurt others: No Plan Recently lost weight without trying: No Eating poorly because of decreased appetite: Yes Patient : No : No Poor oral hygiene: No <JACQUELIN Lam Last Filed: 01/07/23 10:14> Meds Allergies/Adverse reactions: Allergies Allergy/AdvReac Type Severity Reaction Status Date / Time No Known Allergies Allergy Verified 07/02/22 20:50 [No Known Allergies*] <JACQUELIN Lam Last Filed: 01/07/23 10:14> Active Medications: Current Medications Acetaminophen (Acetaminophen 325 Mg Tablet) 650 mg PO Q6H PRN PRN Reason: Pain, Mild (Pain Scale 1-3) Last Admin: 01/07/23 00:26 Dose: 650 mg Al Hydroxide/Mg Hydroxide (Magnesium Hydrox/Alum Hydrox 30 Ml Oral.Susp) 30 ml PO Q4H PRN PRN Reason: Heartburn/Nausea Hydromorphone HCl (Hydromorphone Hcl 1 Mg/Ml Syringe) 0.5 mg IVPUSH Q4H PRN; Protocol PRN Reason: Pain, Severe (Pain Scale 7-10) Last Admin: 01/07/23 09:39 Dose: 0.5 mg Dextrose/Sodium Chloride (D51/2ns) 1,000 mls @ 100 mls/hr IVCONT .Q10H [facility] Last Admin: 01/07/23 09:47 Dose: 100 mls/hr Cefotetan Disodium 1 gm/ (Sodium Chloride) 50 mls @ 100 mls/hr IV Q12H [facility] Last Infusion: 01/07/23 08:40 Dose: Infused Ondansetron HCl (Ondansetron Hcl 4 Mg/2 Ml Vial) 4 mg IVPUSH Q8H PRN PRN Reason: Nausea and Vomiting Last Admin: 01/07/23 01:41 Dose: 4 mg Pharmacy Consult (Consult Rx Perform Med Rec) 1 each MISCELLANE ONCE PRN PRN Reason: Consult order Sodium Chloride (0.9 % Sodium Chloride Flush 3 Ml Syringe) 3 ml IVFLUSH QSHIFT [facility] Last Admin: 01/07/23 09:11 Dose: Not Given Zolpidem Tartrate (Zolpidem Tartrate 5 Mg Tablet) 5 mg PO BEDTIME PRN PRN Reason: Insomnia <JACQUELIN Lam Last Filed: 01/07/23 10:14> Home medications: Home Medications Medication Instructions Recorded Confirmed Last Taken Type No Known Home Meds 09/25/20 01/06/23 Unknown History <JACQUELIN Lam Last Filed: 01/07/23 10:14> Physical Exam Vital Signs: Vital Signs: Last Vital Signs Temp 98.2 F 01/07/23 08:05 Pulse 97 01/07/23 08:05 Resp 16 01/07/23 08:05 BP 109/67 01/07/23 08:05 Pulse Ox 99 01/07/23 08:05 O2 Del Method Room Air 01/07/23 08:05 BMI result Body Mass Index 32.8 <JACQUELIN Lam Last Filed: 01/07/23 10:14> Const: General: comfortable, no acute distress and alert <JACQUELIN Lam Last Filed: 01/07/23 10:14> Orientation/consciousness: patient oriented x3 <Ana Wakefield JACQUELIN Cochran Last Filed: 01/07/23 10:14> Resp: Effort & Inspection: normal respiratory effort <Ana Wakefield JACQUELIN Cochran Last Filed: 01/07/23 10:14> Cardio: Rate: regular rate <Ana Wakefield JACQUELIN Cochran Last Filed: 01/07/23 10:14> GI: Inspection: No distended <Ana Wakefield JACQUELIN Cochran Last Filed: 01/07/23 10:14> Palpation (GI): Soft to palpation and Tenderness to palpation present (GI) in the RLQ (marked ), at McBurney's point and Rovsing's sign positive <Ana Wakefield JACQUELIN Cochran Last Filed: 01/07/23 10:14> Percussion: Yes normal to percussion <Ana Wakefield JACQUELIN Cochran Last Filed: 01/07/23 10:14> Skin: General skin exam: no rashes or lesions noted <Ana Wakefield JACQUELIN Cochran Last Filed: 01/07/23 10:14> Neuro: General: patient oriented x3 and moves all extremities <Ana Penadeau JACQUELIN Cochran Last Filed: 01/07/23 10:14> Extrem: General: Yes no clubbing, cyanosis or edema <Ana Penalonnie JACQUELIN Cochran Last Filed: 01/07/23 10:14> Results Results Labs: Short CBC 01/06/23 Range/Units 15:16 WBC 7.7 (4.8-10.8) X10*3/uL Hgb 13.6 (12.0-16.0) g/dl Hct 39.5 (37.0-47.0) % Plt Count 197 (160-400) X10*3/uL BMP 01/06/23 15:16 Sodium 138 Potassium 4.2 Chloride 106 Carbon Dioxide 23 BUN 7 L Creatinine 0.70 Calcium 9.1 Liver Function 01/06/23 Range/Units 15:16 Total Bilirubin 0.5 (0.0-1.0) mg/dL AST 11 (5-31) U/L ALT 14 (0-31) U/L Alkaline Phosphatase 84 (39-117) U/L Albumin 4.3 (3.5-5.0) g/dL Urine 01/06/23 Range/Units 15:16 Urine Color Yellow Urine Appearance Clear Urine pH 6.5 (5.0-9.0) Ur Specific [place] 1.010 (1.005-1.025) Urine Protein Negative (Neg-Trace) mg/dL Urine Glucose (UA) Negative (Negative) mg/dL <Ana Wakefield PA-C - Last Filed: 01/07/23 10:14> Assessment and Plan (1) Acute appendicitis: Status: Acute <JACQUELIN Lam Last Filed: 01/07/23 10:14> 32 year old female with RLQ abd pain and tenderness with CT scan showing enlarged appendix with surrounding fat stranding and appendicoliths. Clinical picture consistent with acute appendicitis. Patient was admitted to the surgical service for further treatment of the appendicitis. Given the presence of appendicoliths, it was recommended to proceed with laparoscopic appendectomy possible open. Technique of the procedure, risks and benefits including infection, bleeding, injury to surrounding structures including bowel, bladder, vasculature, were discussed with the patient and her . She agrees to proceed. She was added onto the OR schedule for today. She is kept NPO, on IVF and IV cefotan, and on PRN analgesics. <Ana Wakefield PA-C - Last Filed: 01/07/23 10:14> Time Spent With Patient Time: Total time managing care of this patient today ____ minutes. <Ana Wakefield PA-C - Last Filed: 01/07/23 10:14> Quality Stroke Does the patient have a stroke diagnosis?: No <Jae Greenwood MD - Last Filed: 01/07/23 12:08> VTE Prior VTE?: No <Jae Greenwood MD - Last Filed: 01/07/23 12:08> VTE Risk Level:: Surgical - low <JACQUELIN Lam Last Filed: 01/07/23 10:14> VTE Device Contraindication: Treatment Not Indicated <JACQUELIN Lam Last Filed: 01/07/23 10:14> VTE Drug Contraindication: Treatment Not Indicated <Ana Wakefield PA-C - Last Filed: 01/07/23 10:14> Procedures Date of Service Date of Service: 01/07/23 <Jae Greenwood MD - Last Filed: 01/07/23 12:08>
--- NOTE | 2023-01-07 13:25 | MHC.CM.PN ---
Addendum entered by Sunita Elkins 01/08/23 13:05: PT LIVES AT HOME WITH HER AND TWO SMALL CHILDREN SHE IS INDEPENDENT WITH CARE AND MOBILITY SHE HAS NO SERVICES AND NO DME SHE DOES NOT HAVE A HCP PCP ON FILE DCP: HOME TODAY WITH NO SERVICES TO TRANSPORT Original Note: CM ATTEMPTED TO SEE PT WHO WAS OFF UNIT CM TO REVISIT
--- NOTE | 2023-01-07 15:02 | W.PM.OPN ---
Operative Note Operative Note Date of Service: 01/07/23 Narrative: Preoperative diagnosis: [] Acute appendicitis Postop diagnosis: [] Same Procedure [] laparoscopic appendectomy Surgeon: [] Timo Document Review Specialist: [] Ashu SIMPSON Type of Anesthesia: [] General Indication for surgery: [] The edematous inflamed appendix with omental adhesions to it Findings: [] Patient is brought to the operating room, placed on operative table in supine position, after adequate level of general anesthesia was induced, under sterile technique a Davalos catheter was placed, the patient's abdomen was prepped and draped in usual sterile fashion. Using a supraumbilical curvilinear incision, a sign technique was used to insufflate the abdominal cavity to 15 mm of CO2. Low lower midline and suprapubic ports were placed under direct laparoscopic view, and patient was placed in Trendelenburg position, tilted to the left. Findings were as noted above. The edematous inflamed appendix which was not perforated was grasped using laparoscopic graspers, and brought onto to the field. The mesentery was sequentially taken down using double fire ing of ligature device. Appendix was then transected at the cecal base using endoscopic SKYLA stapler. Specimen was placed in an Endo-Catch bag, a retrieved through the umbilical port. The abdominal cavity was very copiously irrigated, and secured hemostasis. All ports were removed under direct laparoscopic view. Wounds were closed in the following manner; umbilical wound at its fascia reapproximated using interrupted 0 Vicryl sutures. Skin was closed using subcuticular 4-0 Vicryl sutures followed by Steri-Strips and sterile dressings. Wounds were infiltrated 0.5% Marcaine at completion. Sponge, needle, and instrument counts reported to be correct. Patient tolerated the procedure well and emerged anesthesia stable condition. EBL minimal
--- NOTE | 2023-01-07 15:20 | P.CONAN_ITS ---
[facility] Active Problems Active Problems: All Active Problems (Updated 01/06/23 @ 17:29 by Ralph Clark DO) Acute appendicitis (Acute) Well adult exam (Acute) Frequent headaches (Acute) Family History Family History Father No problems noted. Mother No problems noted. Brother In good health Sister In good health Son In good health Family history of problems with anesthesia: No Surgical History Surgical History History of section History of Problems with Anesthesia: No Social History Social History Household Members: Spouse Patient Tobacco Use Status: Never used Tobacco Smoked in Last 30 Days: No Second Hand Smoke Exposure: No Use of substances other than those prescribed or required for medical reasons: No Do you feel safe in your current relationship?: Yes Are you DNR?: No Advance Directives: No Advance Directives Information Provided: Yes Advance Directives on File: No Do you have thoughts of harming others: None Do you have a plan to hurt others: No Plan Recently lost weight without trying: No Eating poorly because of decreased appetite: Yes Patient : No : No Poor oral hygiene: No Meds Allergies Allergy/AdvReac Type Severity Reaction Status Date / Time No Known Allergies Allergy Verified 07/02/22 20:50 [No Known Allergies*] Active Medications: Current Medications Acetaminophen (Acetaminophen 325 Mg Tablet) 650 mg PO Q6H PRN PRN Reason: Pain, Mild (Pain Scale 1-3) Last Admin: 01/07/23 00:26 Dose: 650 mg Al Hydroxide/Mg Hydroxide (Magnesium Hydrox/Alum Hydrox 30 Ml Oral.Susp) 30 ml PO Q4H PRN PRN Reason: Heartburn/Nausea Hydromorphone HCl (Hydromorphone Hcl 1 Mg/Ml Syringe) 0.5 mg IVPUSH Q4H PRN; Protocol PRN Reason: Pain, Severe (Pain Scale 7-10) Last Admin: 01/07/23 09:39 Dose: 0.5 mg Dextrose/Sodium Chloride (D51/2ns) 1,000 mls @ 100 mls/hr IVCONT .Q10H [facility] Last Infusion: 01/07/23 12:27 Dose: 0 mls/hr Cefotetan Disodium 1 gm/ (Sodium Chloride) 50 mls @ 100 mls/hr IV [facility] Last Infusion: 01/07/23 08:40 Dose: Infused Ondansetron HCl (Ondansetron Hcl 4 Mg/2 Ml Vial) 4 mg IVPUSH Q8H PRN PRN Reason: Nausea and Vomiting Last Admin: 01/07/23 01:41 Dose: 4 mg Oxycodone HCl (Oxycodone Hcl Immed Release 5 Mg Tablet) 5 mg PO Q4H PRN PRN Reason: Pain, Moderate(Pain Scale 4-6) Pharmacy Consult (Consult Rx Perform Med Rec) 1 each MISCELLANE ONCE PRN PRN Reason: Consult order Sodium Chloride (0.9 % Sodium Chloride Flush 3 Ml Syringe) 3 [facility] Last Admin: 01/07/23 09:11 Dose: Not Given Zolpidem Tartrate (Zolpidem Tartrate 5 Mg Tablet) 5 mg PO BEDTIME PRN PRN Reason: Insomnia Home Medications Medication Instructions Recorded Confirmed Last Taken Type No Known Home Meds 09/25/20 01/06/23 Unknown History Exam Exam Date and Time: January 07, 2023 1520 Height,Weight and Vital Signs: Height 5 ft 10 in Weight 100.8 kg Last Vital Signs Temp 98 F 01/07/23 15:17 Pulse 110 H 01/07/23 15:17 Resp 20 01/07/23 15:17 BP 153/69 H 01/07/23 15:17 Pulse Ox 98 01/07/23 15:17 O2 Del Method Room Air 01/07/23 15:17 Pertinent Lab Results Pertinent Lab Results: Laboratory Tests 01/06/23 01/06/23 01/06/23 15:16 15:16 15:16 WBC 7.7 RBC 4.72 Hgb 13.6 Hct 39.5 MCV 83.7 MCH 28.8 MCHC 34.4 RDW 13.1 Plt Count 197 MPV 11.3 Immature Gran % (Auto) 0.3 Neut % (Auto) 63.6 Lymph % (Auto) 28.5 [place] % (Auto) 5.2 Eos % (Auto) 2.0 Baso % (Auto) 0.4 Lymph # (Auto) 2.2 [place] # (Auto) 0.4 Eos # (Auto) 0.2 Baso # (Auto) 0.0 Abs Immat Gran (auto) 0.02 Absolute Neuts (auto) 4.9 Absolute Nucleated RBC 0.000 Nucleated RBC % (auto) 0.0 ESR Sodium 138 Potassium 4.2 Chloride 106 Carbon Dioxide 23 Anion Gap 13 BUN 7 L Creatinine 0.70 Estim Creat Clear Calc 153.3 Estimated GFR > 60 Random Glucose 97 Calcium 9.1 Magnesium 2.3 Total Bilirubin 0.5 AST 11 ALT 14 Alkaline Phosphatase 84 C-Reactive Protein 0.17 Total Protein 7.3 Albumin 4.3 Lipase 25 Beta HCG, Quant < 2 Urine Color Urine Appearance Urine pH Ur Specific [place] Urine Protein Urine Glucose (UA) Urine Ketones Urine Blood Urine Nitrite Ur Leukocyte Esterase Urine RBC Urine WBC Ur Squamous Epith Cells Urine Bacteria Hyaline Casts COVID-19 ([facility]) COVID-19 Clin Com Influenza Type A (RICCI) Negative Influenza Type B (RICCI) Negative Influenza A & B Note See Note S. pyogenes GrpA RICCI 01/06/23 01/06/23 01/06/23 15:16 15:16 15:16 WBC RBC Hgb Hct MCV MCH MCHC RDW Plt Count MPV Immature Gran % (Auto) Neut % (Auto) Lymph % (Auto) [place] % (Auto) Eos % (Auto) Baso % (Auto) Lymph # (Auto) [place] # (Auto) Eos # (Auto) Baso # (Auto) Abs Immat Gran (auto) Absolute Neuts (auto) Absolute Nucleated RBC Nucleated RBC % (auto) ESR 14 Sodium Potassium Chloride Carbon Dioxide Anion Gap BUN Creatinine Estim Creat Clear Calc Estimated GFR Random Glucose Calcium Magnesium Total Bilirubin AST ALT Alkaline Phosphatase C-Reactive Protein Total Protein Albumin Lipase Beta HCG, Quant Urine Color Yellow Urine Appearance Clear Urine pH 6.5 Ur Specific [place] 1.010 Urine Protein Negative Urine Glucose (UA) Negative Urine Ketones Negative Urine Blood Negative Urine Nitrite Negative Ur Leukocyte Esterase Trace H Urine RBC 0-2 Urine WBC 0-5 Ur Squamous Epith Cells 11-20 Urine Bacteria None Seen Hyaline Casts 0-2 COVID-19 ([facility]NA) Negative COVID-19 Clin Com See Note Influenza Type A (RICCI) Influenza Type B (RICCI) Influenza A & B Note S. pyogenes GrpA RICCI 01/06/23 01/06/23 17:30 Unknown WBC RBC Hgb Hct MCV MCH MCHC RDW Plt Count MPV Immature Gran % (Auto) Neut % (Auto) Lymph % (Auto) [place] % (Auto) Eos % (Auto) Baso % (Auto) Lymph # (Auto) [place] # (Auto) Eos # (Auto) Baso # (Auto) Abs Immat Gran (auto) Absolute Neuts (auto) Absolute Nucleated RBC Nucleated RBC % (auto) ESR Sodium Potassium Chloride Carbon Dioxide Anion Gap BUN Creatinine Estim Creat Clear Calc Estimated GFR Random Glucose Calcium Magnesium Total Bilirubin AST ALT Alkaline Phosphatase C-Reactive Protein Total Protein Albumin Lipase Beta HCG, Quant Urine Color Urine Appearance Urine pH Ur Specific [place] Urine Protein Urine Glucose (UA) Urine Ketones Urine Blood Urine Nitrite Ur Leukocyte Esterase Urine RBC Urine WBC Ur Squamous Epith Cells Urine Bacteria Hyaline Casts COVID-19 ([facility]LENA) Negative COVID-19 Clin Com See Note Influenza Type A (RICCI) Influenza Type B (RICCI) Influenza A & B Note S. pyogenes GrpA RICCI Cancelled Airway Mallampati Class: II TM Dist: >3cm Neck ROM: Full Heart: fastheart rate Lungs: CTA Assessment and Plan Final Anesthetic Review Family History of Problems with Anesthesia: No History of Problems with Anesthesia: No NPO: Yes ASA Class: II Final Preanesthetic Review: Meds/Allgs Chart Reviewed, Consent Obtained/Reviewed and Anes Risks/Benef Reviewed Patient Risk: Low Procedure Risk: Intermediate Anesthetic Plan Anesthetic Plan: GA Disposition: Standard PACU
[2023-01-07] MEDS: Acetaminophen 1,000 MG/100 ML PIGGYBACK 400 MG IV (16:27)
[2023-01-07] MEDS: 0.9 % Sodium Chloride Flush 3 ML SYRINGE IVFLUSH (16:27)
[2023-01-07] MEDS: oxyCODONE HCl Immed Release 5 MG TABLET PO (19:52)
[2023-01-08] MEDS: oxyCODONE HCl Immed Release 5 MG TABLET PO ×3 (02:08→13:18)
[2023-01-08] MEDS: Dextrose 5 % and 0.45 % NaCl 1,000 ML 100 ML IVCONT (02:09)
[2023-01-08 03:18] VITALS: BP 110/53; PULSE 81; RESP 18; TEMP 36.7; O2SAT 98
[2023-01-08 06:58] VITALS: BP 100/58; PULSE 86; RESP 18; TEMP 36.1; O2SAT 98
[2023-01-08] MEDS: 0.9 % Sodium Chloride Flush 3 ML SYRINGE IVFLUSH (09:20)
--- NOTE | 2023-01-08 10:26 | PM.DS ---
DS: Providers Provider Date of Service: 01/08/23 Date of admission: 01/06/23 18:42 Date of discharge: 01/08/23 Primary care physician: None Physician Admitting clinician: Jae Greenwood Attending physician on discharge: Neyda Eric DS: Diagnosis Discharge Diagnosis (1) Acute appendicitis: Status: Acute DS: Summary Hospital Course Hospital Course: pt presented with rlq pain and ct confirmed appendicitis and underwent lap appy and did well. dc home on pod#1 doing well tolerating po diet and pain meds. Status at Discharge Functional status at discharge: independent ambulation Time Spent with Patient Time attestation: Total time managing care of this patient today ____ minutes. Discharge coordination time: Less than 30 minutes Quality: Safe Use of Opioids Does Pt have an Active Cancer Diagnosis on the Problem List?: No Quality: Stroke Does the patient have a stroke diagnosis?: No Physical Exam Vital Signs: Vital Signs: Last Vital Signs Temp 97 F 01/08/23 06:58 Pulse 86 01/08/23 06:58 Resp 18 01/08/23 06:58 BP 100/58 L 01/08/23 06:58 Pulse Ox 98 01/08/23 06:58 O2 Del Method Room Air 01/08/23 06:58 BMI result Body Mass Index 31.9 Const: General: cooperative and in distress mild GI: Other: abdomen soft tender mild rlq area and incisions, complaining of pain in shoulder prob secondary to gas. DS: Data Data Completed and Pending Pending studies at discharge: Pending at discharge 01/07/23 14:50 Surgical [PTH] Routine Labs on day of discharge: Laboratory Results - last 24 hr 01/06/23 17:30 S. pyogenes GrpA RICCI Cancelled Preliminary micro results at discharge 01/06/23 17:46 Blood Culture - Preliminary Blood - Venous No growth after 24 hours. 01/06/23 17:45 Blood Culture - Preliminary Blood - Venous No growth after 24 hours. Discharge Plan Discharge Anticipated Discharge Date/Time: 01/08/23 15:03 Patient Disposition: Home, Self-Care Discharge Diagnosis: acute appendicitis Referrals: Physician,None [Primary Care Provider] - 1 Week Jae Greenwood MD [Physician] - 1 Week Discharge Medications: New docusate sodium [Colace] 100 mg capsule 100 mg PO BID Qty: 30 0RF oxycodone 5 mg tablet 5 mg PO Q4H PRN (Reason: pain (scale score 7-10)) Qty: 20 0RF Rx Instructions: Partial Fill upon patient request. ibuprofen 600 mg tablet 600 mg PO Q6H PRN (Reason: pain) Qty: 30 0RF Discharge Orders: Discharge Order (Routine); Ordered 01/08/23 Ordered By: Neyda Eric Diet: Advance to usual diet Activity on Discharge: No heavy lifting Stand Alone Forms: Patient Portal Discharge page Activity Restrictions/Additional Instructions: Apply an ice pack for short intervals (20 minutes on, followed by at least 20 minutes off) for the first 2 days. Do not apply heat. Do not use creams, lotions, or topical antibiotics. These can cause infection or allergic reaction. Ok to shower 48 hours after your surgery. Remove dressings in 2 days and replace as needed. You have steri strips (small white cloth strips) covering your incision- these will fall off ~1 week. Follow up in office with Dr. Greenwood in 1 week. ([phone]) No heavy lifting (>10lbs) or strenuous activity! Call Your Doctor If: -Your temperature exceeds 101.5? F -You experience excessive pain or swelling -You have an unexpected reaction to medication -You have excessive bleeding -You experience continued vomiting/nausea -Your incision begins to separate -Your incision shows signs of infection such as increased redness, swelling, excessive pain, drainage (light blood or clear fluid is normal) or heat Care Plan Goals: Return to baseline health and resume normal activities following recovery period. Health Concerns: acute appendicitis Plan of Treatment: s/p lap appy F/u in office Assessment: Doing well post op
--- NOTE | 2023-01-08 17:29 | HO.POSTANES ---
Post Anesthesia Evaluation Post Anesthesia Evaluation Vital Signs: Vital Signs Temp Pulse Resp BP Pulse Ox O2 Del Method 01/08/23 06:58 97 F 86 18 100/58 L 98 Room Air Anesthesia: General Endotracheal-GETA Mental Status: Awake Pain Control: Satisfactory Nausea/Vomiting: None Hydration: Adequate Anesthesia-Related Issues: No Anes. Related Issues
== END 2023-01-08 17:35 | disposition home or self-care (01) | DRG 234 ==
LOC: HO.ED 17:29 → HO.EDOVER 18:52 → HO.S3 01-07 07:41
PROVIDERS: Physician Assistant; Admitting Provider Surgery; Emergency Provider Student in an Organized Health Care Education/Training Program; Visit Provider Surgery
PROC: 0DTJ4ZZ Resection of Appendix, Percutaneous Endoscopic Approach (ICD-10-PCS; CPT 44970; principal; 2023-01-07 13:30)
DX: K35.80 Unspecified acute appendicitis (principal); Z20.822 Contact with and (suspected) exposure to COVID-19
CPT/HCPCS: 36415; 74176; 80053; 81001; 83690; 83735; 84702; 85025; 85652; 86140; 87040; 87502; 87635; 87651; 88304; 99285; C1758; J0131; J1100; J1170; J2250; J2270; J2370; J2405; J2543; J3010

== ENCOUNTER → 2023-01-17 10:56 | Outpatient (BNVA) | payer OTHER, SELFPAY | PROVIDERS: Visit Provider Surgery | DX: M79.89 Other specified soft tissue disorders (principal); Z98.890 Other specified postprocedural states; Z90.49 Acquired absence of other specified parts of digestive tract | CPT/HCPCS: 99212 ==

== ENCOUNTER 2023-01-19 09:47 | Outpatient (REF) | payer OTHER, SELFPAY ==
--- NOTE | ~2023-01-19 | US_ITS ---
EXAMINATION: US VENOUS ULTRASOUND WITH DOPPLER LOWER EXTREMITY, RIGHT CLINICAL INFORMATION: Right lower extremity edema status post recent surgery COMPARISON: None available. TECHNIQUE: Ultrasound of the deep veins is performed from the hip to the calf with compression sonography and color and pulse Doppler assessment. Spectral analysis with color-flow imaging is performed. FINDINGS: There is normal venous compression and respiratory variation and augmented flow. The visualized common femoral vein, superficial femoral vein, profunda femoral vein, popliteal vein, and the trifurcation region shows no evidence of deep venous thrombosis. There is a fluid collection is seen anteromedially at the level of the knee joint measuring 3.0 x 1.7 x 2.6 cm If the patient's symptoms persist, followup ultrasound in 5 days 7 days might be of value to exclude proximal propagation from a non-visualized calf vein. US/US venous duplex LE RT IMPRESSION: No DVT demonstrated in the right lower extremity.
== END 2023-01-19 09:48 | disposition home or self-care (01) ==
LOC: HO.US 09:47
PROVIDERS: Visit Provider Surgery
DX: R60.0 Localized edema (principal)
CPT/HCPCS: 93971

== ENCOUNTER → 2023-01-26 11:30 | Outpatient (BNVA) | payer OTHER, SELFPAY | PROVIDERS: Visit Provider Surgery | DX: K35.80 Unspecified acute appendicitis (principal); M79.89 Other specified soft tissue disorders; R59.0 Localized enlarged lymph nodes | CPT/HCPCS: 99212 ==

== ENCOUNTER 2023-02-08 14:04 | Outpatient (REF) | payer OTHER, SELFPAY ==
--- NOTE | ~2023-02-08 | US_ITS ---
EXAMINATION: US SOFT TISSUE NECK CLINICAL INFORMATION: Patient complaining of persistent cervical adenopathy. COMPARISON: None available. TECHNIQUE: Ultrasound of the neck soft tissues/submandibular area is performed with high- frequency osei-scale imaging and color Doppler. FINDINGS: RIGHT NECK SOFT TISSUES: Adjacent to the right submandibular gland, a 2.0 x 0.9 x 1.4 cm reniform lymph node is seen. This shows good corticomedullary differentiation, no focal cortical thickening and a vascular hilum. LEFT NECK SOFT TISSUES: Adjacent to the left submandibular gland, a 2.7 x 1.2 x 1.9 cm reniform lymph node is seen. This shows good corticomedullary differentiation, no focal cortical thickening and a vascular hilum. US/US soft tiss head and/or neck IMPRESSION: Mildly enlarged bilateral cervical lymph nodes are seen, likely reactive. These are nonspecific and should be managed on a clinical basis. If of continued clinical concern, consider short-term follow-up ultrasound imaging in 3-6 months to ensure stability/regression.
== END 2023-02-08 14:05 | disposition home or self-care (01) ==
LOC: HO.US 14:04
PROVIDERS: Visit Provider Surgery
DX: R59.0 Localized enlarged lymph nodes (principal)
CPT/HCPCS: 76536

== ENCOUNTER → 2023-02-16 10:24 | Outpatient (BNVA) | payer OTHER, SELFPAY | PROVIDERS: Visit Provider Surgery | DX: R59.0 Localized enlarged lymph nodes (principal) | CPT/HCPCS: 99212 ==

== ENCOUNTER 2023-11-12 22:50 | Emergency (ER) | payer OTHER, SELFPAY ==
--- NOTE | ~2023-11-12 | US_ITS ---
EXAMINATION: US PELVIS CLINICAL INFORMATION: Pelvic pain COMPARISON: CT from the same day TECHNIQUE: Ultrasound of the pelvis is performed using both transabdominal and transvaginal transducers along with Doppler. Transvaginal imaging is performed due to inadequate visualization transabdominally. FINDINGS: The uterus measures 8.7 x 4.5 x 5.4 cm. Endometrial stripe measures 1.8 cm in thickness. The right ovary measures 3.5 x 2.4 x 2.1 cm and appears unremarkable. The left ovary measures 4.2 x 4.2 x 4.1 cm. Complex focal structure in the left ovary measuring up to 2.0 cm is suggestive of a corpus luteal cyst. Doppler evaluation demonstrates arterial and venous waveforms in the bilateral ovaries. No free fluid is seen. US/US pelvic and transvaginal IMPRESSION: 1. No acute findings identified in the ovaries. 2. Prominent endometrial stripe, which may be related to the phase of menstrual cycle.
--- NOTE | ~2023-11-12 | CT_ITS ---
EXAMINATION: CT ABDOMEN AND PELVIS WITHOUT CONTRAST CLINICAL INFORMATION: Lower abdominal pain, kidney stone COMPARISON: 01/06/2023 TECHNIQUE: Multidetector volumetric imaging was performed from the superior aspect of the liver through the pubic symphysis. Sagittal and coronal reformatted images were obtained on the technologist's workstation. This CT examination was performed using dose optimization techniques as appropriate, variously including the following: *Automated exposure control *Adjustment of mA and/or kV according to patient size (this includes techniques or standardized protocols for targeted exams where dose is matched to indication/reason for exam; i.e. extremities or head) *Use of iterative reconstruction technique DLP: 889 mGy-cm FINDINGS: Limited evaluation in some regions due to motion artifact. LUNG BASES: The visualized lung bases are unremarkable. LIVER, GALLBLADDER, AND BILIARY TREE: The liver is normal in size, shape, and attenuation. No focal hepatic lesion or biliary ductal dilatation is identified on this noncontrast exam. Gallbladder appears contracted and is not adequately evaluated. PANCREAS: Unremarkable. SPLEEN: Unremarkable. ADRENAL GLANDS: Unremarkable. KIDNEYS AND URETERS: Slightly asymmetric prominence of the right extrarenal pelvis as compared to the left, of uncertain clinical significance as no ureteral calculus is seen. Unenhanced kidneys otherwise appear unremarkable. BLADDER: Partially distended and grossly unremarkable. GASTROINTESTINAL TRACT: Stomach is moderately distended with debris. No evidence of bowel obstruction or significant wall thickening. There is moderate stool in the colon. Patient appears to be status post appendectomy. No free fluid or free air is seen. ABDOMINAL WALL: No significant hernia is appreciated. LYMPH NODES: No lymphadenopathy is seen, though assessment is limited in the absence of intravenous contrast. VASCULAR: Unremarkable. PELVIC VISCERA: Grossly unremarkable. OSSEOUS STRUCTURES: Unremarkable. CT/CT abdomen pelvis wo IV con IMPRESSION: Slightly asymmetric prominence of the right extrarenal pelvis as compared to the left, of uncertain clinical significance as no ureteral calculus is seen. No additional acute findings identified in the abdomen/pelvis.
--- NOTE | ~2023-11-12 | US_ITS ---
EXAMINATION: US PELVIS CLINICAL INFORMATION: Pelvic pain COMPARISON: CT from the same day TECHNIQUE: Ultrasound of the pelvis is performed using both transabdominal and transvaginal transducers along with Doppler. Transvaginal imaging is performed due to inadequate visualization transabdominally. FINDINGS: The uterus measures 8.7 x 4.5 x 5.4 cm. Endometrial stripe measures 1.8 cm in thickness. The right ovary measures 3.5 x 2.4 x 2.1 cm and appears unremarkable. The left ovary measures 4.2 x 4.2 x 4.1 cm. Complex focal structure in the left ovary measuring up to 2.0 cm is suggestive of a corpus luteal cyst. Doppler evaluation demonstrates arterial and venous waveforms in the bilateral ovaries. No free fluid is seen. US/US pelvic ovarian doppler IMPRESSION: 1. No acute findings identified in the ovaries. 2. Prominent endometrial stripe, which may be related to the phase of menstrual cycle.
[2023-11-12 22:55] VITALS: BP 125/75; PULSE 92; RESP 18; TEMP 36.1; O2SAT 100; BMI 29.8
[2023-11-12 23:45] LABS: Appearance Urine Clear; Color Urine Yellow; Glucose Urine UA Negative (Negative); Leukocyte Esterase Urine Small (1+) (Negative); Nitrite Urine Negative (Negative); PH 6.5 (5.0-9.0); UMIC TRIGGER UACC YES; Urine Blood Negative (Negative); Urine Ketones Negative (Negative); Urine Protein Negative (Neg-Trace)
[2023-11-12 23:46] LABS: UPreg QC Valid YES; Urine Pregnancy NEGATIVE (NEGATIVE)
[2023-11-12 23:49] LABS: MANUAL DIFF FLAG NO
[2023-11-12 23:50] LABS: Basophils Percent Auto 0.3 % (0-2); Eosinophils Absolute Auto 0.2 X10*3/uL (0.0-0.4); Eosinophils Percent Auto 2.9 % (0-4); Hematocrit 35.6 % (37.0-47.0); Imm Gran Abs Auto 0.02 X10*3/uL (0.00-0.03); Imm Gran Pct Auto 0.3 % (0.0-0.4); Lymphocytes Absolute Auto 3.1 X10*3/uL (1.2-4.9); Lymphocytes Percent Auto 44.1 % (20-40); Mean Corpuscular HGB Conc 33.7 g/dl (31.0-35.0); Mean Corpuscular Hemoglobin 28.8 pg (27.0-33.0); Mean Corpuscular Volume 85.4 fL (80.0-98.0); Monocytes Absolute Auto 0.4 X10*3/uL (0.1-1.2); Monocytes Percent Auto 5.9 % (2-11); Neutrophils Absolute Auto 3.3 x10*3/uL (2.0-8.3); Neutrophils Percent Auto 46.5 % (45-73); Platelet Count 163 X10*3/uL (160-400); Red Blood Count 4.17 X10*6/uL (4.20-5.50)
[2023-11-12 23:51] LABS: Bacteria Urine Trace (None Seen); Hyaline Casts Urine 0-2 /LPF (0-2); RBC Urine 0-2 /HPF (0-2); UACC Culture Trigger YES
--- NOTE | 2023-11-13 00:10 | ED.ABDPAIN ---
HPI - Abdominal Pain General Chief Complaint: Abdominal Pain Stated Complaint: Abdominal pain Time Seen by Provider: 11/12/23 23:55 Source: patient and piece marker small arms (Yakut) Mode of arrival: ambulatory Limitations: no limitations History of Present Illness HPI narrative: This is a 33-year-old female Yakut speaking came in for evaluation of multiple complaints. Patient is complaining of lower abdominal pain for the past 3 days, LMP was last week with few days delay this months, patient is sexually active use contraceptive vaginal ring, no vaginal discharge or bleed, patient declines risk of STDs. Pain is mostly in the suprapubic area, no vaginal bleed or discharge, no dysuria, no frequency urination. Patient also is complaining of sore throat and feels lymph nodes on the side of the neck. Patient used to take thyroid replacement hormone therapy for hypothyroidism that was discontinued by her PCP. Related Data Previous Rx's Medication Instructions Recorded docusate sodium 100 mg capsule 100 mg PO BID #30 caps 01/07/23 (Colace) ibuprofen 600 mg tablet 600 mg PO Q6H PRN pain #30 tabs 01/07/23 cefuroxime axetil 500 mg tablet 500 mg PO BID #14 tabs 11/13/23 Allergies Allergy/AdvReac Type Severity Reaction Status Date / Time No Known Allergies Allergy Verified 11/12/23 22:54 [No Known Allergies*] Review of Systems Review of Systems All other systems are reviewed and are negative Constitutional: Reports as per HPI and Reports no additional constitutional complaints Eyes: Reports as per HPI and Reports no additional eye complaints Reports system reviewed and no additional complaints, except as documented Cardiovascular: Reports as per HPI and Reports no additional cardiovascular complaints Respiratory: Reports as per HPI and Reports no additional respiratory complaints Gastrointestinal: Reports as per HPI and Reports no additional gastrointestinal complaints Genitourinary: Reports no additional female genitourinary complaints Musculoskeletal: Reports no additional musculoskeletal complaints Skin/Breast: Reports system reviewed and no additional complaints, except as docu Psychiatric: Reports no additional psychiatric complaints Endocrine: Reports no additional endocrine complaints Hematologic/Lymphatic: Reports no additional hematologic/lymphatic complaints Allergic/Immunologic: Reports no additional allergic/immunologic complaints Reports system reviewed and no additional complaints, except as documented and Reports Abnormal speech present PMFSH Past Medical History Medical History Well adult exam Frequent headaches Surgical History History of laparoscopic appendectomy History of section (01/07/23) Family History Family History Father No problems noted. Mother No problems noted. Brother In good health Sister In good health Son In good health Social History Social History Household Members: Spouse Patient Tobacco Use Status: Never used Tobacco Second Hand Smoke Exposure: No Advance Directives: No Advance Directives Information Provided: No service: No Current occupational status: unemployed Physical Exam ED Vital Signs: Vital Signs - 24 hr 11/12/23 22:55 Temperature 97.0 F Pulse Rate 92 Respiratory Rate 18 Blood Pressure 125/75 Pulse Oximetry 100 Oxygen Delivery Method Room Air BMI result Body Mass Index 29.8 Vital signs have been reviewed and appear to be correct. Blood pressure elevated. Heart rate normal. Respiratory rate normal. Temperature normal. Oxygen saturation normal. Appearance: Alert. Oriented X3. No acute distress. Head: Normal external exam. Normocephalic. Atraumatic. No Menjivar signs noted. No raccoon eyes noted Eyes: PERRLA. EOMI. Conjunctiva and sclera normal. Eyelids normal. ENT: TM's Normal. Pharynx normal. Uvula midline. Moist mucous membranes. No trismus noted. No drooling noted. No muffled voice noted. Neck: Normal inspection. Neck supple. FROM. No adenopathy. Thyroid Normal. No meningeal signs. No neck mass noted. CVS: Normal heart rate and rhythm. Heart sound normal. No murmurs noted. Pulses normal throughout. Respiratory: No respiratory distress. Painless inspiration. Breath sounds normal. No wheezes/rales/rhonchi noted. Chest nontender. No accessory muscle usage noted or decreased air movement noted. Abdomen: Soft, mild suprapubic tenderness, no guarding, no rebound tenderness. Bowel sounds normal in all 4 quadrants. No distention noted. No organomegaly noted. No visible injury noted. Pelvic exam: Deferred for the ultrasound. Back: Right CVA tenderness. Full range of motion noted. Skin: Skin warm and dry. Normal skin color. Normal skin turgor. No rashes/lesions/lacerations noted. Extremities: No lower extremity edema. Extremities exhibit normal range of motion. Extremities nontender. Neuro: Oriented X 3. Cranial nerve exam: II-XII are grossly intact No motor deficit. No sensory deficit. Reflexes normal. Course Reevaluation(s) Reevaluation #1: Patient feels better, CT of the abdomen pelvis unremarkable except for nonsignificant bilateral adnexal asymmetry but negative pelvic ultrasound for ovarian cyst or torsion. Patient's symptoms could be related to the pre menstrual pelvic pain. No issue with hypothyroidism with normal TSH. Patient was instructed to follow-up with PCP. Time: 03:18 Medical Decision Making Differential Diagnosis Differential Diagnoses: The differential diagnosis associated with the presentation includes (Electrolyte derangement, severe anemia, , UTI, colitis, diverticulitis, ovarian cyst, ovarian torsion, hypothyroidism.) Admission/Observation Consideration of admission/observation: Escalation of care including admission/observation considered Lab Data MDM Lab Attestation statement: I reviewed the patient's lab results. 11/12/23 23:43 11/12/23 23:43 Labs: Lab Results 11/12/23 11/12/23 11/13/23 Range/Units 23:27 23:43 01:27 WBC 7.0 (4.8-10.8) X10*3/uL RBC 4.17 L (4.20-5.50) X10*6/uL Hgb 12.0 (12.0-16.0) g/dl Hct 35.6 L (37.0-47.0) % MCV 85.4 (80.0-98.0) fL MCH 28.8 (27.0-33.0) pg MCHC 33.7 (31.0-35.0) g/dl RDW 13.0 (11.0-16.0) % Plt Count 163 (160-400) X10*3/uL MPV 11.0 (9.4-12.3) fL Immature Gran % (Auto) 0.3 (0.0-0.4) % Neut % (Auto) 46.5 (45-73) % Lymph % (Auto) 44.1 H (20-40) % [place] % (Auto) 5.9 (2-11) % Eos % (Auto) 2.9 (0-4) % Baso % (Auto) 0.3 (0-2) % Lymph # (Auto) 3.1 (1.2-4.9) X10*3/uL [place] # (Auto) 0.4 (0.1-1.2) X10*3/uL Eos # (Auto) 0.2 (0.0-0.4) X10*3/uL Baso # (Auto) 0.0 (0.0-0.2) X10*3/uL Abs Immat Gran (auto) 0.02 (0.00-0.03) X10*3/uL Absolute Neuts (auto) 3.3 (2.0-8.3) x10*3/uL Absolute Nucleated RBC 0.000 (0.0-0.012) X10*3/uL Nucleated RBC % (auto) 0.0 (0.0-0.2) /100WBC Sodium 141 (135-145) mmol/L Potassium 4.1 (3.3-5.1) mmol/L Chloride 109 H (96-108) mmol/L Carbon Dioxide 25 (22-29) mmol/L Anion Gap 11 L (12-20) BUN 17 H (9-16) mg/dL Creatinine 0.84 (0.5-1.4) mg/dL Estim Creat Clear Calc 113.2 Estimated GFR > 60 Random Glucose 89 (60-115) mg/dL Calcium 8.9 (8.4-10.2) mg/dL Total Bilirubin 0.2 (0.0-1.0) mg/dL AST 11 (5-31) U/L ALT 12 (0-31) U/L Alkaline Phosphatase 76 (39-117) U/L Total Protein 7.2 (6.5-8.0) g/dL Albumin 4.1 (3.5-5.0) g/dL Lipase 41 (8-78) U/L TSH 1.30 (0.32-4.0) uIU/mL Urine Color Yellow Urine Appearance Clear Urine pH 6.5 (5.0-9.0) Ur Specific [place] 1.020 (1.005-1.025) Urine Protein Negative (Neg-Trace) mg/dL Urine Glucose (UA) Negative (Negative) mg/dL Urine Ketones Negative (Negative) mg/dL Urine Blood Negative (Negative) Urine Nitrite Negative (Negative) Ur Leukocyte Esterase Small (1+) H (Negative) Urine RBC 0-2 (0-2) /HPF Urine WBC 11-20 H (0-5) /HPF Ur Squamous Epith Cells 11-20 (0-2) /HPF Urine Bacteria Trace (None Seen) Hyaline Casts 0-2 (0-2) /LPF Urine Test NEGATIVE (NEGATIVE) Influenza Type A (PCR) NEGATIVE (Negative) Influenza Type B (PCR) NEGATIVE (Negative) RSV RNA Qual (PCR) NEGATIVE (Negative) SARS-CoV-2 RNA (RT-PCR) NEGATIVE (Negative) S. pyogenes GrpA RICCI Negative (Negative) Independent Interpretation I performed an independent interpretation of an: Ultrasound (Pelvic ultrasound:1. No acute findings identified in the ovaries. 2. Prominent endometrial stripe, which may be related to the phase of menstrual cycle. ) and CT Scan (Abdomen and pelvis:Slightly asymmetric prominence of the right extrarenal pelvis as compared to the left, of uncertain clinical significance as no ureteral calculus is seen. No additional acute findings identified in the abdomen/pelvis. ) Radiology Impression Discussion of test interpretation with radiology: I have reviewed the radiologist's reading. Medications Administered Discontinued Medications Generic Name Dose Route Start Last Admin Trade Name Freq PRN Reason Stop Dose Admin Cefuroxime Axetil 500 mg 11/13/23 00:16 11/13/23 01:17 Cefuroxime Axetil 500 Mg Tablet PO 11/13/23 00:17 500 mg ONCE ONE Administration Discharge Plan Discharge Clinical Impression: Pelvic pain, UTI (urinary tract infection) Patient Disposition: Home, Self-Care Instructions: Urinary Tract Infection in Women (ED) Additional Instructions: Follow-up with your PCP in 1 week. Prescriptions: New cefuroxime axetil 500 mg tablet 500 mg PO BID Qty: 14 0RF No Action docusate sodium [Colace] 100 mg capsule 100 mg PO BID Qty: 30 0RF ibuprofen 600 mg tablet 600 mg PO Q6H PRN (Reason: pain) Qty: 30 0RF
[2023-11-13 00:17] LABS: Alanine Aminotransferase 12 U/L (0-31); Albumin Level 4.1 g/dL (3.5-5.0); Alkaline Phosphatase 76 U/L (39-117); Anion Gap 11 (12-20); Aspartate Amino Transferase 11 U/L (5-31); Bilirubin Total 0.2 mg/dL (0.0-1.0); Blood Urea Nitrogen 17 mg/dL (9-16); Calcium 8.9 mg/dL (8.4-10.2); Carbon Dioxide 25 mmol/L (22-29); Chloride 109 mmol/L (96-108); Creatinine Clr Calc Pharmacy 113.2; Estimated Glomerular Filt Rate > 60; Glucose Random 89 mg/dL (60-115); Lipase 41 U/L (8-78); Potassium 4.1 mmol/L (3.3-5.1); Sodium 141 mmol/L (135-145); Total Protein 7.2 g/dL (6.5-8.0)
[2023-11-13] MEDS: cefuroxime axetiL 500 MG TABLET PO (01:17)
--- NOTE | 2023-11-13 01:19 | PC.NURSE ---
pt medicated according to mar. resting comfortably on stretcher. awaiting results from ultrasound
[2023-11-13 01:40] LABS: IDNOW Serial# 6674DD1D; Strep A Nucleic Acid Negative (Negative)
[2023-11-13 03:10] LABS: Influenza A PCR NEGATIVE (Negative); Influenza B PCR NEGATIVE (Negative); Resp Syncy Virus RNA Qual PCR NEGATIVE (Negative); SARS COV2 PCR INHOUSE NEGATIVE (Negative)
[2023-11-13 04:03] VITALS: BP 134/95; PULSE 90; RESP 14; O2SAT 98
--- NOTE | 2023-11-13 04:04 | PC.NURSE ---
pt calm and cooperative. ambulatory at discharge. pt declined need for hat lining blocker. pt provided with discharge packet verbalized understanding of discharge plan.
== END 2023-11-13 04:06 | disposition home or self-care (01) ==
PROVIDERS: Emergency Provider Emergency Medicine
DX: N39.0 Urinary tract infection, site not specified (principal); R10.2 Pelvic and perineal pain; R10.30 Lower abdominal pain, unspecified; Z11.52 Encounter for screening for COVID-19; Z20.828 Contact with and (suspected) exposure to other viral communicable diseases
CPT/HCPCS: 0241U; 36415; 74176; 76830; 76856; 80053; 81001; 81025; 83690; 84443; 85025; 87086; 87651; 93975; 99284

== ENCOUNTER → 2024-03-05 12:39 | Outpatient (BNVA) | payer OTHER, SELFPAY | PROVIDERS: Visit Provider Surgery ==

== ENCOUNTER 2024-03-22 13:15 | Outpatient (AMB) | payer OTHER, SELFPAY ==
--- NOTE | 2024-03-22 13:30 | A.OFFVIS_ITS ---
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 She returns to our program, she was in our program in 2019 and she cancelled the surgery due to her son being sick. Her goal is to lose weight and achieve a healthy lifestyle. She reports first being concerned about her weight 5 years ago, highest weight to date was 232. Current weight is 232.4 pounds with a BMI of 39.9. She has tried multiple methods of weight loss including previous SWL program here at [facility] without permanent results. She lives with her and family. She does not work. She wakes at:?7-8 am, and goes to bed at?MN. Dinner is at 6-7 pm. Breakfast: coffee, cake and fruit AM snack: fruit, crackers Lunch: chicken, fish, rice, soup PM snack: coffee and sweets, chips, fruit Dinner: skip After dinner: skip Other snacks: cookies, candy Liquids: 64 oz water, no soda or juice, iced tea without sugar though Alcohol/marijuana/tobacco intake: none Exercise: treadmill at home, 3-6 days per week, 250-275 calories GERD score: [] BIANKA score: [] ESS score: [] QOL score: [] PFSH Medical History Well adult exam Frequent headaches Surgical History History of laparoscopic appendectomy History of section (01/07/23) Family History Father No problems noted. Mother No problems noted. Brother In good health Sister In good health Son In good health Social History Household Members: Spouse Patient Tobacco Use Status: Never used Tobacco Second Hand Smoke Exposure: No service: No Current occupational status: unemployed Physical Exam Const General: cooperative, healthy appearing and no acute distress Orientation/consciousness: patient oriented x3 HEENT Head: Yes normal to inspection Ears: hearing grossly normal bilaterally General nose exam: Normal external nose present Face and sinus: Yes normal facial exam Eyes General: appearance normal, both eyes and all related structures Resp Effort & Inspection: normal respiratory effort Auscultation: clear to auscultation bilaterally Cardio Rate: regular rate Rhythm: regular rhythm Heart sounds: S1 normal heart sound present and S2 normal heart sound present GI Inspection: Yes normal to inspection, No distended and Yes obesity Palpation (GI): Soft to palpation, nontender and no guarding Auscultation: normal bowel sounds Skin General skin exam: no rashes or lesions noted Neuro General: patient oriented x3 Extrem General: No edema Psych Appearance: grossly normal Mental Status: mental status grossly normal Speech and movement: Normal speech and movement present Affect: normal affect Attitude: cooperative Assessment & Plan Assessment & Plan (1) Obesity (BMI 30-39.9): Code(s): E66.9 - Obesity, unspecified Category: Medical Plan: This is a?33 yo female who will start our SWL program to prepare for bariatric surgery.? Blood work, CXR, ECG, Abd US and UGI have been ordered. She is being scheduled for initial consultations. She will start SWL classes and watch the first three videos before her next appointment. 1. You have been given a paper with a link to our software [email or web address] ([employer]) to generate an individualized nutritional and exercise plan specific for you. Please send me a screenshot of the plans you will generate Meal to include lean meat (beef, fish, pork, turkey, chicken), or occitan yogurt, or egg whites, or beans with a salad with olive oil and fruits (berries, pears, apples, kiwi). Avoid salt, breads, potatoes, rice, pasta, desserts. 2. If you choose shakes, each shake would be drunk slowly, like coffee over a period of 2 hours. 3. If you choose bars, cut each bar in 4 pieces and eat each piece in 30min to make each bar last 2 hours. 4. I emphasized the importance of measuring accurately the food portion and measure it when serving the food on a plate 5. The meal portions include a specific number of forks of meat (protein) and salad. You always eat the meat portion but you can replace up to half of salad/vegetables portion with rice, potatoes or pasta, or a fruit ?if you like. The less you do it the better weight loss will be. 6. One full-size fork is what it can be scooped on the fork without falling aside and not what can be bit with the fork. Use regular forks like those you find in a typical restaurant. 7.? Please send me weight measurements from your body composition scale as soon as possible and then once a week. Always include your diet and exercise plan. The best time to weigh yourself is first thing in the morning after going to the bathroom. 8. The best choice for exercise would be continued use of your treadmill at home. You may also walk outside, tracking her calories using the [employer] johnny 9.?Goal is to lose at least 1.5-2lbs per week, and about 10% before surgery, which is about 23 pounds 10. Please follow the diet plan exactly without any change. If you don't like something about the plan or you feel hungry you need to communicate with me so I can help you revise the plan. My cell phone number to communicate with me by text is [phone] Patient is morbidly obese and is not considered stable at this time.?I spent a total of 70 minutes reviewing/updating records, examining the patient and counseling the patient on weight management as detailed above. Orders: Orders Insulin Today E66.9 - Obesity, unspecified Hemoglobin A1c Today E66.9 - Obesity, unspecified Complete Blood Count Auto Diff Today E66.9 - Obesity, unspecified Lipid Panel Today E66.9 - Obesity, unspecified Comprehensive Met. Panel Today E66.9 - Obesity, unspecified Vitamin B12 and Folate Today E66.9 - Obesity, unspecified Zinc Today E66.9 - Obesity, unspecified C Reactive Protein Today E66.9 - Obesity, unspecified Vitamin B1 Today E66.9 - Obesity, unspecified TSH reflex Free T4 Today E66.9 - Obesity, unspecified XR chest 2V Today E66.9 - Obesity, unspecified ECG 12 lead EKG Today E66.9 - Obesity, unspecified IRON PROFILE Today E66.9 - Obesity, unspecified Vitamin A Today E66.9 - Obesity, unspecified Ferritin Today E66.9 - Obesity, unspecified Vitamin D 25-OH Total Today E66.9 - Obesity, unspecified US abdomen comp w elastography Today E66.9 - Obesity, unspecified FL upper GI w air Today E66.9 - Obesity, unspecified Referrals Behavioral Health Referral E66.9 - Obesity, unspecified
[2024-03-22 13:31] VITALS: BP 130/64; PULSE 80; TEMP 36.7; O2SAT 98; BMI 39.9
== END 2024-03-22 14:15 | disposition home or self-care (01) ==
PROVIDERS: Visit Provider Physician Assistant Surgical
DX: E66.9 Obesity, unspecified (principal); Z68.39 Body mass index [BMI] 39.0-39.9, adult
CPT/HCPCS: 99205

== ENCOUNTER → 2024-03-22 13:15 | Outpatient (BNVA) | payer OTHER, SELFPAY | PROVIDERS: Visit Provider Physician Assistant Surgical | DX: E66.9 Obesity, unspecified (principal); Z68.39 Body mass index [BMI] 39.0-39.9, adult | CPT/HCPCS: 99202 ==

== ENCOUNTER 2024-04-23 13:05 | Outpatient (AMB) | payer OTHER, SELFPAY ==
--- NOTE | 2024-04-23 13:06 | MHC.OFFVISWM ---
VS Expanded 04/23/24 13:20 BP 126/61 Blood Pressure Location Rt brachial Blood Pressure Position Sitting Pulse 86 Pulse Source Pulse Oximeter Temp 98.1 F Temperature Source Temporal Artery Scan Pulse Oximetry 98 Oxygen Delivery Method Room Air Height 5 ft 4 in Weight 229 lb 12.8 oz BMI 39.4 Body Fat % 43.1 Body Fat Mass 99.0 Fat Free Mass 130.8 Visceral Fat Rating 10.0 Body Water % 40.8 Body Water Mass 93.6 Muscle Mass/Score 124.2 Basal Metabolic Rate/Score 1,850 Intake Visit Reasons: (OV) F/U SWL Program Engagement Director Required: Yes Program Engagement Director Services: Program Engagement Director Present Program Engagement Director Name: [id number] Allergies No Known Allergies [No Known Allergies*] Allergy (Verified 04/23/24 13:11) Medication List - Last Reconciled 04/23/24 by TATIANA Huizar No Known Home Meds HPI Comments Details: Patient is a pleasant 33-year-old female who returns to the office today in follow-up. She was initially seen on 03/22/2024 with a weight of 232.4 lb and a BMI of 39.9. Weight today is 229.8 lb with a BMI of 39.5. She has lost 2.6 lb or 1.1% total body weight loss. She states that she was doing the meal plan and then it stopped working. She followed the meal plan Meal plan: premier protein rtd think protein bar meal protein and veg, not measuring drinking 48-80 oz water exercise plan: treadmill 4-5 days per week, 300 gabriela PFSH Medical History Well adult exam Frequent headaches Surgical History History of laparoscopic appendectomy History of section (01/07/23) Family History Father No problems noted. Mother No problems noted. Brother In good health Sister In good health Son In good health Social History Household Members: Spouse Patient Tobacco Use Status: Never used Tobacco Second Hand Smoke Exposure: No service: No Current occupational status: unemployed Physical Exam Const General: healthy appearing and no acute distress Resp Effort & Inspection: normal respiratory effort Auscultation: clear to auscultation bilaterally Cardio Rate: regular rate Rhythm: regular rhythm GI Auscultation: normal bowel sounds Extrem General: Yes normal to inspection Assessment & Plan Assessment & Plan (1) Obesity (BMI 30-39.9): Code(s): E66.9 - Obesity, unspecified Category: Medical Plan: With the use of documentation billing clerk, she will redo her meal plan and carefully read it so that she does not make any mistakes. I have encouraged her to increase her exercise from 4 days a week to 7 days a week. We will have her return to the office in approximately 1 month.
[2024-04-23 13:20] VITALS: BP 126/61; PULSE 86; TEMP 36.7; O2SAT 98; BMI 39.4
== END 2024-04-23 13:42 | disposition home or self-care (01) ==
PROVIDERS: Visit Provider Physician Assistant Surgical
DX: E66.9 Obesity, unspecified (principal)
CPT/HCPCS: 99213

== ENCOUNTER → 2024-04-23 13:05 | Outpatient (BNVA) | payer OTHER, SELFPAY | PROVIDERS: Visit Provider Physician Assistant Surgical ==